=== PATIENT | male | born 1950 | race Caucasian/White ===

== ENCOUNTER 2017-06-14 22:43 | Emergency (ER) | payer BC ==
[~2017-06-14] VITALS: Ht 188 cm; Wt 95.3 kg
[~2017-06-14 22:43] MED LIST: CLOP75TA PO; DILT300C PO; GLYB5TAB6 PO; LOSA1TAB23 PO; METF-380 PO; PRD20T PO
[2017-06-14] MEDS ORDERED: CLINDAMYCIN INJECTION 900 MG in NS (IVPB) 50 ML IV ONE (23:15)
[2017-06-14 23:23] LABS: BASOPHILS % (AUTO) 0 % (0-10); EOSINOPHILS # (AUTO) 0.1 10^3/uL (0.0-0.3); EOSINOPHILS % (AUTO) 1 % (0-10); LYMPHOCYTES # (AUTO) 1.2 X 10^3 (1.0-4.0); LYMPHOCYTES % (AUTO) 9 % (12-44); MEAN CORPUSCULAR HEMOGLOBIN 31 PG (25-34); MEAN CORPUSCULAR HGB CONC 35 G/DL (32-36); MEAN CORPUSCULAR VOLUME 88 FL (80-99); MEAN PLATELET VOLUME 9.5 FL (7.4-10.4); MONOCYTES # (AUTO) 1.4 X 10^3 (0.0-1.0); MONOCYTES % (AUTO) 10 % (0-12); NEUTROPHILS # (AUTO) 11.8 X 10^3 (1.8-7.8); NEUTROPHILS % (AUTO) 81 % (42-75); PLATELET COUNT 214 10^3/uL (130-400); RED BLOOD COUNT 4.81 10^6/uL (4.35-5.85); RED CELL DISTRIBUTION WIDTH 13.4 % (10.0-14.5); WHITE BLOOD COUNT 14.5 10^3/uL (4.3-11.0)
[2017-06-14 23:42] LABS: BAND NEUTROPHILS 0 %; BASOPHILS % (MANUAL) 0 %; EOSINOPHILS % (MANUAL) 2 %; ERYTHROCYTE SEDIMENTATION RATE 4 MM/HR (0-30); LYMPHOCYTES % (MANUAL) 3 %; NEUTROPHILS % (MANUAL) 83 %; REACTIVE LYMPHOCYTES 4 %
[2017-06-14 23:44] LABS: CREATININE SERUM 1.31 MG/DL (0.60-1.30); POTASSIUM 3.9 MMOL/L (3.6-5.0); hs C REACTIVE PROTEIN 1.04 MG/DL (0.00-0.50)
[2017-06-15] MEDS ORDERED: CLIN300C11 PO (00:07)
--- NOTE | 2017-06-15 00:08 | ED Lower Extremity ---
General Chief Complaint: Lower Extremity Stated Complaint: LT GREAT TOE INFECTION Nursing Triage Note: PT AMBULATED TO ROOM. PT STATES APPROX 2200 TONIGHT HE WAS OUT WITH HIS ANIMALS AND WHEN HE WENT INSIDE HIS HOUSE HE NOTICED A WOUND ON HIS LEFT GREATER TOE. PT STATES HE IS A DIABETIC SO HE JUST WANTED TO GET IT CHECKED OUT SOONER THAN LATER. PT HAS NO PAIN COMPLAINTS AT THIS TIME. Nursing Sepsis Screen: No Definite Risk Source: patient, spouse Exam Limitations: no limitations History of Present Illness Time seen by provider: 23:00 Initial Comments PT IS DIABETIC WITH PERIPHERAL NEUROPATHY. HAS HAD FOOT ULCER TO LEFT GREAT TOE OFF AND ON X 4 YEARS AREA BEGAN TO BECOME BLISTERED AND SOFT AGAIN 1 1/2 WEEKS AGO, AND WAS SEEN BY DR. DAWSON AND HAD AREA DEBRIDED. HAS FOLLOW UP APPOINTMENT NEXT WEEK. TONIGHT AT 2200 HE NOTICED A STREAK GOING UP HIS FOOT, WAS NOT AWARE HE HAD ANY PROBLEMS WITH IT UNTIL TONIGHT NO DRAINAGE FROM AREA NO FEVER PT DOES NOT HAVE ANY SENSATION TO FEET, EXCEPT MILD VIBRATORY SENSATION PCP: DR. HORAN TEACHING MUSIC LESSONS: DR. DAWSON Allergies and Home Medications Allergies Coded Allergies: Penicillins (Unverified Allergy, 05/08/10) Home Medications Clindamycin HCl 300 Mg Capsule, 300 MG PO QID, #40 Prescribed by: SEVEN ROACH on 06/15/17 0007 Clopidogrel Bisulfate 75 Mg Tablet, 1 EACH PO DAILY, (Reported) Diltiazem Hcl 300 Mg Cap.sr.24h, 1 EACH PO DAILY, (Reported) Glyburide 5 Mg Tablet, 1 EACH PO DAILY, (Reported) Losartan/Hydrochlorothiazide 1 Each Tablet, 1 EACH PO DAILY, (Reported) Metformin Hcl 1,000 Mg Tablet, 1 EACH PO BID WITH MEALS, (Reported) Prednisone 20 Mg Tab, 20 MG PO BID, #6 Prescribed by: KONSTANTIN LINDQUIST on 05/10/16 4847 Constitutional: no symptoms reported Respiratory: no symptoms reported Cardiovascular: no symptoms reported Musculoskeletal: see HPI Skin: see HPI Psychiatric/Neurological: See HPI, Pre-Existing Deficit Past Gjtbhiz-Pudauv-Nzhiex Hx Patient Social History Alcohol Use: Denies Use Recreational Drug Use: No Smoking Status: Never a Smoker 2nd Hand Smoke Exposure: No Recent Foreign Travel: No Contact w/Someone Who Travel: No Recent Infectious Disease Expo: No Recent Hopitalizations: No Seasonal Allergies Seasonal Allergies: No Surgeries HX Surgeries: No Respiratory Hx Respiratory Disorders: No Cardiovascular Hx Cardiac Disorders: Yes Cardiac Disorders: Hypertension Neurological Hx Neurological Disorders: Yes Neurological Disorders: Neuropathy Reproductive System Hx Reproductive Disorders: No Sexually Transmitted Disease: No Genitourinary Hx Genitourinary Disorders: No Gastrointestinal Hx Gastrointestinal Disorders: No Musculoskeletal Hx Musculoskeletal Disorders: No Endocrine Hx Endocrine Disorders: Yes Endocrine Disorders: Diabetes, Non-Insulin dep HEENT HX ENT Disorders: No Cancer Hx Cancer: No Psychosocial Hx Psychiatric Problems: No Integumentary HX Skin/Integumentary Disorder: Yes (DIABETIC FOOT ULCER-LEFT GREAT TOE) Blood Transfusions Hx Blood Disorders: No Adverse Reaction to a Blood Tr: No Physical Exam Vital Signs Vital Sign - Last 12Hours 06/14/17 22:45 Temp 97.2 Pulse 82 Resp 20 B/P (MAP) 151/76 Pulse Ox 96 O2 Delivery Room Air Capillary Refill : Less Than 3 Seconds General Appearance: WD/WN, no apparent distress Cardiovascular: normal peripheral pulses, regular rate, rhythm, no murmur Respiratory: normal breath sounds Feet: left foot other (LEFT GREAT TOE WITH AT LEAST A STAGE 2 ULCER WITHOUT DRAINAGE. ENTIRE LEFT GREAT TOE IS RED AND SWOLLEN, WITH A STREAK EXTENDING UP TO MEDIAL MALLEOLUS . PT DOES NOT HAVE SENSATION TO FOOT. CAPILLARY REFILL IS NORMAL AND ROM IS NORMAL. ) Neurologic/Psychiatric: house admin II-XII nml as tested, alert, normal mood/affect, oriented x 3 Skin: normal color, warm/dry, other ( ABOVE) Progress/Results/Core Measures Results/Orders Lab Results Laboratory Tests Test 06/14/17 23:00 Range/Units White Blood Count 14.5 H 4.3-11.0 10^3/uL Red Blood Count 4.81 4.35-5.85 10^6/uL Hemoglobin 14.8 13.3-17.7 G/DL Hematocrit 42 40-54 % Mean Corpuscular Volume 88 80-99 FL Mean Corpuscular Hemoglobin 31 25-34 PG Mean Corpuscular Hemoglobin Concent 35 32-36 G/DL Red Cell Distribution Width 13.4 10.0-14.5 % Platelet Count 214 130-400 10^3/uL Mean Platelet Volume 9.5 7.4-10.4 FL Neutrophils (%) (Auto) 81 H 42-75 % Lymphocytes (%) (Auto) 9 L 12-44 % Monocytes (%) (Auto) 10 0-12 % Eosinophils (%) (Auto) 1 0-10 % Basophils (%) (Auto) 0 0-10 % Neutrophils # (Auto) 11.8 H 1.8-7.8 X 10^3 Lymphocytes # (Auto) 1.2 1.0-4.0 X 10^3 Monocytes # (Auto) 1.4 H 0.0-1.0 X 10^3 Eosinophils # (Auto) 0.1 0.0-0.3 10^3/uL Basophils # (Auto) 0.0 0.0-0.1 10^3/uL Neutrophils % (Manual) 83 % Lymphocytes % (Manual) 3 % Monocytes % (Manual) 8 % Eosinophils % (Manual) 2 % Basophils % (Manual) 0 % Band Neutrophils 0 % Reactive Lymphocytes 4 % Blood Morphology Comment NORMAL Erythrocyte Sedimentation Rate 4 0-30 MM/HR Sodium Level 135 135-145 MMOL/L Potassium Level 3.9 3.6-5.0 MMOL/L Chloride Level 101 98-107 MMOL/L Carbon Dioxide Level 24 21-32 MMOL/L Anion Gap 10 5-14 MMOL/L Blood Urea Nitrogen 26 H 7-18 MG/DL Creatinine 1.31 H 0.60-1.30 MG/DL Estimat Glomerular Filtration Rate 54 BUN/Creatinine Ratio 20 Glucose Level 334 H 70-105 MG/DL Lactic Acid Level 1.19 0.50-2.00 MMOL/L Calcium Level 9.0 8.5-10.1 MG/DL C-Reactive Protein High Sensitivity 1.04 H 0.00-0.50 MG/DL My Orders Orders - SEVEN ROACH DO Saline Lock/Iv-Start (06/14/17 23:05) Basic Metabolic Panel (06/14/17 23:05) Cbc With Automated Diff (06/14/17 23:05) Hs C Reactive Protein (06/14/17 23:05) Erythrocyte Sedimentation Rate (06/14/17 23:05) Lactic Acid Analyzer (06/14/17 23:05) Blood Culture (06/14/17 23:05) Foot, Left, 3 Views (06/14/17 23:05) Clindamycin Injection (Cleocin Injection (06/14/17 23:15) Manual Differential (06/14/17 23:00) Medications Given in ED Current Medications Medications Dose Ordered Sig/Mirela Route Start Time Stop Time Status Last Admin Dose Admin Clindamycin Phosphate 900 mg/ Sodium Chloride 56 ml @ 100 mls/hr ONCE ONCE IV 06/14/17 23:15 06/14/17 23:48 DC 06/14/17 23:19 100 MLS/HR Vital Signs/I&O Vital Sign - Last 12Hours 06/14/17 06/15/17 22:45 00:13 Temp 97.2 97.2 Pulse 82 71 Resp 20 16 B/P (MAP) 151/76 Pulse Ox 96 95 O2 Delivery Room Air Room Air Intake and Output 06/15/17 00:00 Intake Total 56 ml Balance 56 ml Blood Pressure Mean: 101 Progress Note : Progress Note STREAK IS BEGINNING TO FADE AND RECEDE AT TIME OF DISMISSAL OFFERED ADMIT AND PT DECLINES. PT ADMITS THAT CLINDAMYCIN HAS WORKED VERY WELL FOR THIS PROBLEM IN THE PAST Departure Impression Impression: Primary Impression: Diabetic ulcer of left great toe Additional Impression: Cellulitis of great toe of left foot Disposition: HOME, SELF-CARE Condition: Stable Departure-Patient Inst. Referrals: RADHA HORAN MD (PCP/Family) Primary Care Physician MANSI DAWSON DPM Patient Instructions: Cellulitis (Skin Infection), Adult (DC), Diabetic Foot Ulcer (DC) Add. Discharge Instructions: KEEP AREA CLEAN AND DRY CHECK YOUR BLOOD SUGAR 3 TIMES A DAY AND KEEP DIARY FOLLOW UP WITH DR. HORAN AND DR. DAWSON IN 1-2 DAYS FOR FURTHER CARE RETURN TO ER IF WORSE All discharge instructions reviewed with patient and/or family. Voiced understanding. Scripts Clindamycin HCl (Clindamycin HCl) 300 Mg Capsule 300 MG PO QID for FOR INFECTION, #40 CAP Prov: SEVEN ROACH DO 06/15/17 SEVEN ROACH DO Jun 15, 2017 12:08 am
[2017-06-15 00:13] VITALS: BP 135/74
--- NOTE | 2017-06-15 06:55 | Diagnostic Imaging Report ---
INDICATION: Left foot pain. Redness and swelling of the great toe. COMPARISON: 05/19/2010. TECHNIQUE: 3 nonweightbearing views of the left foot. FINDINGS: No cortical indistinctness or osseous erosions to confirm osteomyelitis. No periarticular erosions or soft tissue tophi to suggest gout. Multifocal moderate degenerative changes in the midfoot, particularly at the tarsometatarsal articulation. The cuboid has volume loss which is likely degenerative in nature and similar to prior examination. There appears to be midfoot collapse although this cannot be confirmed on nonweightbearing imaging. No fracture. Small plantar and dorsal calcaneal spurs. IMPRESSION: No radiographic evidence of osteomyelitis or gout. Dictated by: Dictated on workstation # [id number]
== END 2017-06-15 00:13 | disposition home or self-care (01) ==
LOC: EDUNIT# 22:43 → ER 22:44
DX: E11.621 Type 2 diabetes mellitus with foot ulcer (principal); L97.529 Non-pressure chronic ulcer of other part of left foot with unspecified severity; L03.032 Cellulitis of left toe; E11.40 Type 2 diabetes mellitus with diabetic neuropathy, unspecified; I10 Essential (primary) hypertension; Z79.84 Long term (current) use of oral hypoglycemic drugs; Z79.02 Long term (current) use of antithrombotics/antiplatelets
CPT/HCPCS: 36415; 73630; 80048; 83605; 85007; 85027; 85652; 86141; 87040; 96365

== ENCOUNTER 2018-04-30 15:47 | Emergency (ER) | payer MEDICARE ==
[~2018-04-30] VITALS: Ht 188 cm; Wt 97.1 kg
[~2018-04-30 15:47] MED LIST changes: +CLIN300C11 PO
--- NOTE | 2018-04-30 16:53 | ED GU-Male ---
General Chief Complaint: Catheter/Drain/Tube Problems Stated Complaint: UNABLE TO URINATE/TUBE/CATHETER ISSUES Nursing Triage Note: PT AMBULATES TO ED 7 W CO OF CATHERTER NOT DRAINING, PT STATES HAD CATHETER PUT IN ON WEDNESDAY, STATES HAD BLOOD CLOT WEDNESDAY, STATES HAS QUIT DRAINING AGAIN TODAY. PLANS TO SEE DR JARAMILLO 1ST OF NEXT WEEK. STATES NEEDS CATH IRRIGATED. Source: patient, family Exam Limitations: no limitations Allergies and Home Medications Allergies Coded Allergies: Penicillins (Unverified Allergy, 05/08/10) Home Medications Clindamycin HCl 300 Mg Capsule, 300 MG PO QID Prescribed by: SEVEN ROACH on 06/15/17 0007 Clopidogrel Bisulfate 75 Mg Tablet, 1 EACH PO DAILY, (Reported) Diltiazem Hcl 300 Mg Cap.sr.24h, 1 EACH PO DAILY, (Reported) Glyburide 5 Mg Tablet, 1 EACH PO DAILY, (Reported) Losartan/Hydrochlorothiazide 1 Each Tablet, 1 EACH PO DAILY, (Reported) Metformin Hcl 1,000 Mg Tablet, 1 EACH PO BID WITH MEALS, (Reported) Prednisone 20 Mg Tab, 20 MG PO BID Prescribed by: KONSTANTIN LINDQUIST on 05/10/16 1392 Past Vbwcfkh-Rodjcp-Lvmiuo Hx Patient Social History Alcohol Use: Denies Use Recreational Drug Use: No Smoking Status: Never a Smoker 2nd Hand Smoke Exposure: No Recent Foreign Travel: No Contact w/Someone Who Travel: No Recent Infectious Disease Expo: No Recent Hopitalizations: No Physical Abuse: No Sexual Abuse: No Seasonal Allergies Seasonal Allergies: No Past Medical History Surgeries: No Respiratory: No Cardiac: Yes Hypertension Neurological: Yes Neuropathy Reproductive Disorders: No Sexually Transmitted Disease: No Genitourinary: No Gastrointestinal: No Musculoskeletal: No Endocrine: Yes Diabetes, Non-Insulin dep HEENT: No Cancer: No Psychosocial: No Nursing Suicide Risk Score: 0 Integumentary: Yes (DIABETIC FOOT ULCER-LEFT GREAT TOE) Blood Disorders: No Adverse Reaction/Blood Tranf: No Physical Exam Vital Signs Vital Signs - First Documented 04/30/18 16:15 Temp 97.2 Pulse 70 Resp 18 B/P (MAP) 155/86 (109) Pulse Ox 100 Capillary Refill : Less Than 3 Seconds Progress/Results/Core Measures Suspected Sepsis Recent Fever Within 48 Hours: No Infection Criteria Present: None New/Unexplained Altered Menta: No Sepsis Screen: No Definite Risk SIRS Temperature:97.2 Pulse: 70 Respiratory Rate: 18 Blood Pressure 155 /86 Mean: 109 Results/Orders Vital Signs/I&O 04/30/18 16:15 Temp 97.2 Pulse 70 Resp 18 B/P (MAP) 155/86 (109) Pulse Ox 100 Capillary Refill : Less Than 3 Seconds Blood Pressure Mean: 109 Departure Impression Primary Impression: Chen catheter problem Qualified Codes: T83.9XXA - Unspecified complication of genitourinary prosthetic device, implant and graft, initial encounter Disposition: HOME, SELF-CARE Condition: Improved Departure-Patient Inst. Decision time for Depature: 16:51 Referrals: RADHA HORAN MD (PCP/Family) Primary Care Physician Patient Instructions: How to Care for Your Chen Catheter, Male Add. Discharge Instructions: Empty your catheter bag as often as possible. Keep your catheter bag lower that your hips to prevent backflush. Continue with your medications and follow-up appointments as previously directed. Return to care if you have any other problems or concerns. All discharge instructions reviewed with patient and/or family. Voiced understanding. KONSTANTIN COFFEY MD Apr 30, 2018 16:52
[2018-04-30 16:55] VITALS: BP 155/86
== END 2018-04-30 16:55 | disposition home or self-care (01) ==
LOC: EDUNIT# 15:47 → ER 15:48
DX: T83.9XXA Unspecified complication of genitourinary prosthetic device, implant and graft, initial encounter (principal); R30.0 Dysuria; I10 Essential (primary) hypertension; E11.40 Type 2 diabetes mellitus with diabetic neuropathy, unspecified; E11.621 Type 2 diabetes mellitus with foot ulcer; L97.529 Non-pressure chronic ulcer of other part of left foot with unspecified severity; Z88.0 Allergy status to penicillin; Z79.84 Long term (current) use of oral hypoglycemic drugs; Z79.52 Long term (current) use of systemic steroids; Z79.02 Long term (current) use of antithrombotics/antiplatelets; Z96.0 Presence of urogenital implants
CPT/HCPCS: 99281

== ENCOUNTER 2018-10-20 08:07 | Emergency (ER) | payer MEDICARE ==
[~2018-10-20] VITALS: Ht 185.4 cm; Wt 98.4 kg
--- OUTSIDE RECORDS SUMMARY | 2018-10-20 08:15 | XMS REPORT | Clinical Summary ---
Author Author [facility] Organization [facility] Address Unknown Phone Unavailable Care Team Providers Care Air [employer] Pilot Name Role Phone Malik Lozano MD Unavailable Hipolito Deras MD Unavailable Hipolito Deras MD PCP Source Comments Some departments are not documenting in the electronic medical record. If you do not see the information that you expected, contact Release of Information in the Health Information Management department at [phone] for further assistance in locating additional records.[facility] Allergies Comments Active Allergy Reactions Severity Noted Date MSG's Unclassified Drug HIVES 05/05/2012 Penicillins HIVES 05/05/2012 Medications End Date Status Medication Sig Dispensed Refills Start Date Active glyBURIDE (DIABETA) 5 mg Take 5 mg by 0 tablet mouth daily with breakfast. Active diltiazem CD (CARDIZEM Take 300 mg 0 CD) 300 mg capsule by mouth daily. Active losartan (COZAAR) 25 mg Take 25 mg by 0 tablet mouth daily. Active clopidogrel (PLAVIX) 75 Take 75 mg by 0 mg mouth daily. Active cetirizine (ZYRTEC) 10 mg Take 10 mg by 0 tablet mouth daily. Active tamsulosin (FLOMAX) 0.4 Take 0.4 mg 0 mg capsule by mouth daily. Do not crush, chew or open capsules. Take 30 minutes following the same meal each day. Active metFORMIN (GLUCOPHAGE) Take one 180 tablet 3 1,000 mg tablet by 8 tabletIndications: mouth twice Controlled type 2 daily with diabetes mellitus without meals. 1/2 in complication, without am x 2w, then long-term current use of 1/2 bid x 2w, insulin (HCC) the 1 am 1/2 pm x 2w, then 1 bid. Take with food. 10/05/2018 Discontinued metFORMIN (GLUCOPHAGE) Take 1 Tab by 180 Tab 3 1,000 mg mouth twice 7 tabletIndications: daily with Controlled type 2 meals. 1/2 in diabetes mellitus without am x 2w, then complication, without 1/2 bid x 2w, long-term current use of the 1 am 1/2 insulin (HCC) pm x 2w, then 1 bid. Take with food. Active Problems Problem Noted Date Dysarthria 05/05/2012 Dysphonia 05/05/2012 Aphasia 05/05/2012 Encounters Care Team Description Date Type Specialty Darrell Reed MD Controlled type 2 diabetes mellitus without complication, without long-term current use of insulin (HCC) 10/05/2018 Office Visit Endocrinology, Metabolism & Genetics from Last 3 Months Family History Medical History Relation Name Comments Heart Attack Father Stroke Father Alzheimer's Mother Other Mother NPH Relation Name Status Comments Father Mother Social History Date Tobacco Use Types Packs/Day Years Used Former Smoker Cigars Smokeless Tobacco: Former Chew User Tobacco Cessation: Counseling Given: No Alcohol Use Drinks/Week oz/Week Comments Yes 2-3 Glasses 1.2 - 1.8 of wine Sex Assigned at Date Recorded Not on file Industry Job Start Date Occupation Not on file Not on file Not on file Travel End Travel History Travel Start No recent travel history available. Last Filed Vital Signs Time Taken Vital Sign Reading 10/05/2018 10:30 AM BLANKET CUTTING MACHINE OPERATOR Blood Pressure 116/65 10/05/2018 10:30 AM BLANKET CUTTING MACHINE OPERATOR Pulse 62 06/03/2012 1:05 AM CDT Temperature 36.3 C (97.4 F) - Respiratory Rate - - Oxygen Saturation - - Inhaled Oxygen - Concentration 10/05/2018 10:30 AM BLANKET CUTTING MACHINE OPERATOR Weight 100 kg (220 lb 6.4 oz) 10/05/2018 10:30 AM BLANKET CUTTING MACHINE OPERATOR Height 186.1 cm (6' 1.27") 10/05/2018 10:30 AM BLANKET CUTTING MACHINE OPERATOR Body Mass Index 28.87 Plan of Treatment Health Maintenance Due Date Last Done Comments HEPATITIS C SCREENING 1950 PHYSICAL (COMPREHENSIVE) 02/18/1956 EXAM DTAP/TDAP VACCINES (1 - 1967 Tdap) COLORECTAL CANCER 1999 SCREENING SHINGLES RECOMBINANT 1999 VACCINE (1 of 2) ABDOMINAL AORTIC ANEURYSM 2014 SCREENING PNEUMONIA (PCV13/PPSV23) 2014 VACCINES (1 of 2 - PCV13) DILATED EYE EXAM 10/08/2017 10/08/2016 INFLUENZA VACCINE 06/08/2018 08/08/2017 FOOT EXAM 10/06/2018 10/06/2017 HBA1C 04/04/2019 10/05/2018, 10/06/2017, 02/11/2017 Procedures Comments Procedure Name Priority Date/Time Associated Diagnosis POC HEMOGLOBIN A1C Routine 10/05/2018 Controlled type 2 10:30 AM BLANKET CUTTING MACHINE OPERATOR diabetes mellitus without complication, without long-term current use of insulin (HCC) POC GLUCOSE QUANTITATIVE Routine 10/05/2018 Controlled type 2 BLOOD 10:30 AM BLANKET CUTTING MACHINE OPERATOR diabetes mellitus without complication, without long-term current use of insulin (HCC) from Last 3 Months Results * POC GLUCOSE QUANTITATIVE BLOOD (10/05/2018 10:30 AM BLANKET CUTTING MACHINE OPERATOR) Glucose, POC 156 [facility] Specimen Blood, capillary Performing Organization Address City/State/Zipcode Phone Number IN CLINIC * POC HEMOGLOBIN A1C (10/05/2018 10:30 AM BLANKET CUTTING MACHINE OPERATOR) Poc Hemoglobin A1C 7.0 % IN CLINIC Specimen Blood, capillary - Blood Performing Organization Address City/State/Zipcode Phone Number IN CLINIC from Last 3 Months Insurance Payer Benefit Subscriber ID Type Phone Address Plan / Group MEDICARE MEDICARE xxxxxxxxxx Medicare PART A AND B BCBS [place] BCBS xxxxxxxxxxxx Medicare SUPPLEMENT Advance Directives Patient has advance care planning documents on file. For more information, please contact: [facility] [address] [place] [address]
--- OUTSIDE RECORDS SUMMARY | 2018-10-20 08:15 | XMS REPORT | Encounter Summary ---
Author Author [facility] Organization [facility] Address Unknown Phone Unavailable Care Team Providers Care Chief Passenger Ship Steward/Stewardess Name Role Phone Malik Lozano MD Unavailable Hipolito Deras MD Unavailable Hipolito Deras MD PCP Reason for Visit * Reason Comments Diabetes Encounter Details Care Team Description Date Type Department Zeina Reed MD [address] [facility] [address] [place] [address] [phone] Controlled type 2 diabetes mellitus without complication, without long-term current use of insulin ([facility]) 10/05/2018 Office Visit [facility] - Internal [facility] [address] [place] [address] Social History Date Tobacco Use Types Packs/Day Years Used Former Smoker Cigars Smokeless Tobacco: Former Chew User Alcohol Use Drinks/Week oz/Week Comments Yes 2-3 Glasses 1.2 - 1.8 of wine Sex Assigned at Date Recorded Not on file Industry Job Start Date Occupation Not on file Not on file Not on file Travel End Travel History Travel Start No recent travel history available. as of this encounter Last Filed Vital Signs Time Taken Vital Sign Reading 10/05/2018 10:30 AM MEDICAL RECORD CODER Blood Pressure 116/65 10/05/2018 10:30 AM MEDICAL RECORD CODER Pulse 62 - Temperature - - Respiratory Rate - - Oxygen Saturation - - Inhaled Oxygen - Concentration 10/05/2018 10:30 AM MEDICAL RECORD CODER Weight 100 kg (220 lb 6.4 oz) 10/05/2018 10:30 AM MEDICAL RECORD CODER Height 186.1 cm (6' 1.27") 10/05/2018 10:30 AM MEDICAL RECORD CODER Body Mass Index 28.87 in this encounter Patient Instructions * Patient Instructions* Zeina Reed MD - 10/05/2018 11:00 AM MEDICAL RECORD CODER 1. I'd suggest checking out the [employer] website to see if you can qualify for cheap medication. 2. If it's easier to remember, you can take metformin 1000 mg with both breakfast and lunch. 3. Getting metformin on a more regular basis may suffice in lowering the hemoglobin A1c. However, if you can get your hands on affordable Trulicity, it would help. CAL RECORD CODER in this encounter Progress Notes * Zeina Reed MD - 10/05/2018 11:00 AM MEDICAL RECORD CODER Date of Service: 10/05/2018 Subjective: Misael Ch is a 68 y.o. male. History of Present Illness Dictation on: 10/06/2018 8:00 AM by: ZEINA REED [ [email or web address]] Review of Systems Endocrine: Positive for cold intolerance. Genitourinary: Positive for difficulty urinating. All other systems reviewed and are negative. Objective: cetirizine (ZYRTEC) 10 mg tablet Take 10 mg by mouth daily. clopidogrel (PLAVIX) 75 mg Take 75 mg by mouth daily. diltiazem CD (CARDIZEM CD) 300 mg capsule Take 300 mg by mouth daily. glyBURIDE (DIABETA) 5 mg tablet Take 5 mg by mouth daily with breakfast. losartan (COZAAR) 25 mg tablet Take 25 mg by mouth daily. metFORMIN (GLUCOPHAGE) 1,000 mg tablet Take one tablet by mouth twice daily with meals. 1/2 in am x 2w, then 1/2 bid x 2w, the 1 am 1/2 pm x 2w, then 1 bid. Take with food. tamsulosin (FLOMAX) 0.4 mg capsule Take 0.4 mg by mouth daily. Do not crush , chew or open capsules. Take 30 minutes following the same meal each day. Vitals: 10/05/18 1030 BP: 116/65 Pulse: 62 Weight: 100 kg (220 lb 6.4 oz) Height: 186.1 cm (73.27") Body mass index is 28.87 kg/m. Physical Exam Constitutional: He is oriented to person, place, and time. He appears well- developed and well-nourished. HENT: Head: Normocephalic. Eyes: Conjunctivae are normal. Neck: Normal range of motion. Cardiovascular: Normal rate, regular rhythm, normal heart sounds and intact distal pulses. Pulmonary/Chest: Effort normal and breath sounds normal. Abdominal: Soft. Bowel sounds are normal. Musculoskeletal: Normal range of motion. Neurological: He is alert and oriented to person, place, and time. Feet in good condition. Sensation normal in feet. Skin: Skin is warm and dry. Psychiatric: He has a normal mood and affect. His behavior is normal. Nursing note and vitals reviewed. Assessment and Plan: Dictation on: 10/06/2018 8:01 AM by: ZEINA REED [[email or web address]] CAL RECORD CODER in this encounter Plan of Treatment Not on fileas of this encounter Procedures Comments Procedure Name Priority Date/Time Associated Diagnosis POC GLUCOSE QUANTITATIVE Routine 10/05/2018 Controlled type 2 BLOOD 10:30 AM MEDICAL RECORD CODER diabetes mellitus without complication, without long-term current use of insulin (HCC) POC HEMOGLOBIN A1C Routine 10/05/2018 Controlled type 2 10:30 AM MEDICAL RECORD CODER diabetes mellitus without complication, without long-term current use of insulin (HCC) in this encounter Results * POC HEMOGLOBIN A1C (10/05/2018 10:30 AM MEDICAL RECORD CODER) Poc Hemoglobin A1C 7.0 % IN CLINIC Specimen Blood, capillary - Blood Performing Organization Address [facility] * POC GLUCOSE QUANTITATIVE BLOOD (10/05/2018 10:30 AM MEDICAL RECORD CODER) Glucose, POC 156 [facility] Specimen Blood, capillary Performing Organization Address [facility] Phone Number [facility] in this encounter Visit Diagnoses Diagnosis Controlled type 2 diabetes mellitus without complication, without long-term current use of insulin (HCC) in this encounter
--- OUTSIDE RECORDS SUMMARY | 2018-10-20 08:16 | XMS REPORT | Continuity of Care Document ---
Author Author [facility] Organization [facility] Address Unknown Phone Unavailable Allergies Active Description Code Type Severity Reaction Onset Reported/Identified Relationship to Patient Clinical Status Yes Penicillins [id number] Drug Allergy Unknown N/A 05/08/2010 Medications There is no data. 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, ACCIDENTAL ( 05/14/2016 ERLINDA LEYVA, KONSTANTIN T Ot L50.0 ALLERGIC URTICARIA 05/14/2016 ERLINDA LEYVA, KONSTANTIN T Ot 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, ACCIDENTAL ( 06/14/2017 Ot 723.1 CERVICALGIA 06/14/2017 Ot 784.49 OTHER VOICE AND RESONANCE DISORDERS 06/15/2017 SEVEN ROACH DO Ot E11.40 TYPE 2 DIABETES MELLITUS WITH DIABETIC N 06/15/2017 SEVEN ROACH DO Ot E11.621 TYPE 2 DIABETES MELLITUS WITH FOOT ULCER 06/15/2017 SEVEN ROACH DO Ot I10 ESSENTIAL (PRIMARY) HYPERTENSION 06/15/2017 SEVEN ROACH DO Ot L03.032 CELLULITIS OF LEFT TOE 06/15/2017 SEVEN ROACH DO Ot L08.89 OTH LOCAL INFECTIONS OF THE SKIN AND SUB 06/15/2017 SEVEN ROACH DO Ot L97.529 NON-PRESSURE CHRONIC ULCER OTH PRT LEFT 06/15/2017 SEVEN ROACH DO Ot 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 INSTRUCTOR (CURRENT) USE OF ANTITHROMBOTI 06/15/2017 SEVEN ROACH DO Ot Z79.84 MCC (CURRENT) USE OF ORAL HYPOGLYC 04/30/2018 KONSTANTIN COFFEY MD, Ot E11.40 TYPE 2 DIABETES MELLITUS WITH DIABETIC N 04/30/2018 KONSTANTIN COFFEY MD, Ot E11.621 TYPE 2 DIABETES MELLITUS WITH FOOT ULCER 04/30/2018 KONSTANTIN COFFEY MD Ot I10 ESSENTIAL (PRIMARY) HYPERTENSION 04/30/2018 KONSTANTIN COFFEY MD, Ot L97.529 NON-PRESSURE CHRONIC ULCER OTH PRT LEFT 04/30/2018 KONSTANTIN COFFEY MD Ot R30.0 DYSURIA 04/30/2018 KONSTANTIN COFFEY MD Ot 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 04/30/2018 KONSTANTIN COFFEY MD Ot 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 INSTRUCTOR (CURRENT) USE OF ANTITHROMBOTI 04/30/2018 KONSTANTIN COFFEY MD Ot Z79.52 FACULTY INSTRUCTOR (CURRENT) USE OF SYSTEMIC STER 04/30/2018 KONSTANTIN COFFEY MD Ot Z79.84 FACULTY INSTRUCTOR (CURRENT) USE OF ORAL HYPOGLYC 04/30/2018 KONSTANTIN COFFEY MD, Ot Z88.0 ALLERGY STATUS TO PENICILLIN 04/30/2018 KONSTANTIN COFFEY MD Ot Z96.0 PRESENCE OF UROGENITAL IMPLANTS 05/02/2018 KONSTANTIN COFFEY MD, Ot E11.40 TYPE 2 DIABETES MELLITUS WITH DIABETIC N 05/02/2018 KONSTANTIN COFFEY MD, Ot E11.621 TYPE 2 DIABETES MELLITUS WITH FOOT ULCER 05/02/2018 KONSTANTIN COFFEY MD Ot I10 ESSENTIAL (PRIMARY) HYPERTENSION 05/02/2018 KONSTANTIN COFFEY MD Ot L97.529 NON-PRESSURE CHRONIC ULCER OTH PRT LEFT 05/02/2018 KONSTANTIN COFFEY MD Ot R30.0 DYSURIA 05/02/2018 KONSTANTIN COFFEY MD Ot 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 Results Test Result Range Complete blood count (CBC) with automated white blood cell (WBC) differential - 06/14/17 23:00 Blood leukocytes automated count (number/volume) 14.5 10*3/uL 4.3-11.0 Blood erythrocytes automated count (number/volume) 4.81 10*6/uL 4.35-5.85 Venous blood hemoglobin measurement (mass/volume) 14.8 g/dL 13.3-17.7 Blood hematocrit (volume fraction) 42 % 40-54 Automated erythrocyte mean corpuscular volume 88 [foz_us] 80-99 Automated erythrocyte mean corpuscular hemoglobin (mass per erythrocyte) 31 pg 25-34 Automated erythrocyte mean corpuscular hemoglobin concentration measurement ( mass/volume) 35 g/dL 32-36 Automated erythrocyte distribution width ratio 13.4 % 10.0-14.5 Automated blood platelet count (count/volume) 214 10*3/uL 130-400 Automated blood platelet mean volume measurement 9.5 [foz_us] 7.4-10.4 Automated blood neutrophils/100 leukocytes 81 % 42-75 Automated blood lymphocytes/100 leukocytes 9 % 12-44 Blood monocytes/100 leukocytes 10 % 0-12 Automated blood eosinophils/100 leukocytes 1 % 0-10 Automated blood basophils/100 leukocytes 0 % 0-10 Blood neutrophils automated count (number/volume) 11.8 10*3 1.8-7.8 Blood lymphocytes automated count (number/volume) 1.2 10*3 1.0-4.0 Blood monocytes automated count (number/volume) 1.4 10*3 0.0-1.0 Automated eosinophil count 0.1 10*3/uL 0.0-0.3 Automated blood basophil count (count/volume) 0.0 10*3/uL 0.0-0.1 Blood lactic acid measurement (moles/volume) - 06/14/17 23:00 Blood lactic acid measurement (moles/volume) 1.19 mmol/L 0.50-2.00 Blood manual differential performed detection - 06/14/17 23:00 Blood monocytes/100 leukocytes 8 % NRG Manual blood segmented neutrophils/100 leukocytes 83 % NRG Blood band neutrophils/100 leukocytes 0 % NRG Manual blood lymphocytes/100 leukocytes 3 % NRG Manual eosinophils/100 leukocytes in nose 2 % NRG Manual blood basophils/100 leukocytes 0 % NRG Blood lymphocytes variant/100 leukocytes 4 % NRG Blood erythrocyte morphology finding identification NORMAL NRG Erythrocyte sedimentation rate by westergren method - 06/14/17 23:00 Erythrocyte sedimentation rate by westergren method 4 mm 0-30 Whole blood basic metabolic panel - 06/14/17 23:00 Serum or plasma sodium measurement (moles/volume) 135 mmol/L 135-145 Serum or plasma potassium measurement (moles/volume) 3.9 mmol/L 3.6-5.0 Serum or plasma chloride measurement (moles/volume) 101 mmol/L 98-107 Carbon dioxide 24 mmol/L 21-32 Serum or plasma anion gap determination (moles/volume) 10 mmol/L 5-14 Serum or plasma urea nitrogen measurement (mass/volume) 26 mg/dL 7-18 Serum or plasma creatinine measurement (mass/volume) 1.31 mg/dL 0.60-1.30 Serum or plasma urea nitrogen/creatinine mass ratio 20 NRG Serum or plasma creatinine measurement with calculation of estimated glomerular filtration rate 54 NRG Serum or plasma glucose measurement (mass/volume) 334 mg/dL 70-105 Serum or plasma calcium measurement (mass/volume) 9.0 mg/dL 8.5-10.1 Serum or plasma C reactive protein measurement (mass/volume) - 06/14/17 23:00 Serum or plasma C reactive protein measurement (mass/volume) 1.04 mg /dL 0.00-0.50 Bacterial blood culture - 06/14/17 23:00 Bacterial blood culture NG NRG Bacterial blood culture - 06/14/17 23:15 Bacterial blood culture NG NRG Encounters ACCT No. Visit Date/Time Discharge Status Pt. Type Provider Facility Loc./Unit Complaint [id number] 04/30/2018 15:48:00 04/30/2018 16:55:00 DIS Emergency KONSTANTIN COFFEY MD [facility] ER UNABLE TO URINATE/TUBE /CATHETER ISSUES [id number] 06/14/2017 22:44:00 06/15/2017 00:13:00 DIS Emergency SEVEN ROACH DO [facility] ER LT GREAT TOE INFECTION [id number] 05/10/2016 22:01:00 05/10/2016 23:25:00 DIS Emergency KONSTANTIN COFFEY MD [facility] ER POSS ALLERGIC REACTION [id number] 12/09/2013 13:57:00 12/09/2013 23:59:59 CLS Emergency [id number] 10/20/2018 08:08:00 ACT Emergency LEANDER BRITO MD [facility] ER TROUBLE URINATING [id number] 08/26/2012 13:45:00 Document Registration [id number] 04/08/2012 10:33:00 Document Registration [id number] 03/14/2012 11:52:00 Document Registration [id number] 04/15/2015 15:05:42 04/15/2015 15:05:43 DIS Outpatient
[2018-10-20 10:07] LABS: BILIRUBIN,URINE NEGATIVE (NEGATIVE); CLARITY,URINE CLEAR; COLOR,URINE YELLOW; GLUCOSE, URINE (UA) 3+ (NEGATIVE); KETONES,URINE 2+ (NEGATIVE); LEUKOCYTE ESTERASE ,URINE NEGATIVE (NEGATIVE); NITRITE,URINE NEGATIVE (NEGATIVE); PH,URINE 5 (5-9); PROTEIN,URINE 1+ (NEGATIVE); UROBILINOGEN,URINE NORMAL (NORMAL)
[2018-10-20 10:15] LABS: BACTERIA,URINE TRACE /HPF; SQUAMOUS EPITHELIAL CELL,UR RARE /HPF; WBC,URINE RARE /HPF
--- NOTE | 2018-10-20 10:31 | ED GU-Male ---
General Chief Complaint: -Male Stated Complaint: TROUBLE URINATING Nursing Triage Note: Pt reports difficulty urinating since last night. Pt reports he is able to urinate but is only urinating small amounts. Pt also reports diarrhea x2 days and hemorrhoids. Source: patient Exam Limitations: no limitations History of Present Illness Date Seen by Provider: Oct 20, 2018 Time Seen by Provider: 09:50 Initial Comments Here with report of inability to urinate well since last night. Does have history of enlarged prostate. That is being followed by his urologist Dr. Arevalo. He has had multiple urinations of small amounts frequently but no significant urination since last night. Also notes a little bit of diarrhea with this. Denies fevers. Has had to have catheter in the past. Timing/Duration: yesterday, getting worse Severity/Quality: moderate, aching, cramping Location: suprapubic Radiation: none Activities at Onset: none Modifying Factors: Improves With Urinating Associated Symptoms: No dysuria, No fever/chills; urinary frequency Allergies and Home Medications Allergies Coded Allergies: Penicillins (Unverified Allergy, 05/08/10) Home Medications Clindamycin HCl 300 Mg Capsule, 300 MG PO QID Prescribed by: SEVEN ROACH on 06/15/17 0007 Clopidogrel Bisulfate 75 Mg Tablet, 1 EACH PO DAILY, (Reported) Diltiazem Hcl 300 Mg Cap.sr.24h, 1 EACH PO DAILY, (Reported) Glyburide 5 Mg Tablet, 1 EACH PO DAILY, (Reported) Losartan/Hydrochlorothiazide 1 Each Tablet, 1 EACH PO DAILY, (Reported) Metformin Hcl 1,000 Mg Tablet, 1 EACH PO BID WITH MEALS, (Reported) Prednisone 20 Mg Tab, 20 MG PO BID Prescribed by: KONSTANTIN LINDQUIST on 05/10/16 9034 Patient Home Medication List Home Medication List Reviewed: Yes Review of Systems Review of Systems Constitutional: see HPI; No chills, No fever Respiratory: no symptoms reported Cardiovascular: no symptoms reported Genitourinary: frequency, pain Psychiatric/Neurological: No Symptoms Reported Past Eslvwva-Refvug-Inddsa Hx Past Med/Social Hx: Reviewed Nursing Past Med/Soc Hx Patient Social History Alcohol Use: Denies Use Recreational Drug Use: No Smoking Status: Never a Smoker 2nd Hand Smoke Exposure: No Recent Foreign Travel: No Contact w/Someone Who Travel: No Recent Infectious Disease Expo: No Recent Hopitalizations: No Seasonal Allergies Seasonal Allergies: No Past Medical History Surgeries: No Respiratory: No Cardiac: Yes Hypertension Neurological: Yes Neuropathy Reproductive Disorders: No Sexually Transmitted Disease: No Genitourinary: Yes Prostate Problems Gastrointestinal: No Musculoskeletal: No Endocrine: Yes Diabetes, Non-Insulin dep HEENT: No Cancer: No Psychosocial: No Integumentary: Yes (DIABETIC FOOT ULCER-LEFT GREAT TOE) Blood Disorders: No Adverse Reaction/Blood Tranf: No Family Medical History Reviewed Nursing Family Hx Physical Exam Vital Signs Vital Signs - First Documented 10/20/18 08:30 Temp 96.3 Pulse 108 Resp 18 B/P (MAP) 160/90 (113) Pulse Ox 98 O2 Delivery Room Air Capillary Refill : Less Than 3 Seconds Height, Weight, BMI Height: 6'1.00" Weight: 217lbs. oz. 98.390653lh; BMI Method:Stated General Appearance: WD/WN, no apparent distress Cardiovascular: regular rate, rhythm, no murmur Respiratory: lungs clear, normal breath sounds Gastrointestinal: soft, tenderness, other (fullness in the suprapubic region) Male: normal genitalia, no hernia Back: normal inspection, no CVA tenderness, no vertebral tenderness Neurologic/Psychiatric: alert, oriented x 3 Skin: normal color, warm/dry Progress/Results/Core Measures Suspected Sepsis Recent Fever Within 48 Hours: No Infection Criteria Present: Suspected New Infection New/Unexplained Altered Menta: No Sepsis Screen: Possible Sepsis Risk SIRS Temperature:96.3 Pulse: 108 Respiratory Rate: 18 Blood Pressure 160 /90 Mean: 113 Results/Orders Lab Results Laboratory Tests Test 10/20/18 09:57 Range/Units Urine Color YELLOW Urine Clarity CLEAR Urine pH 5 5-9 Urine Specific [place] 1.015 L 1.016-1.022 Urine Protein 1+ H NEGATIVE Urine Glucose (UA) 3+ H NEGATIVE Urine Ketones 2+ H NEGATIVE Urine Nitrite NEGATIVE NEGATIVE Urine Bilirubin NEGATIVE NEGATIVE Urine Urobilinogen NORMAL NORMAL MG/DL Urine Leukocyte Esterase NEGATIVE NEGATIVE Urine RBC (Auto) 2+ H NEGATIVE Urine RBC 2-5 H /HPF Urine WBC RARE /HPF Urine Squamous Epithelial Cells RARE /HPF Urine Crystals NONE /LPF Urine Bacteria TRACE /HPF Urine Casts NONE /LPF Urine Mucus SMALL H /LPF Urine Culture Indicated NO My Orders Orders - LEANDER BRITO MD Catheter(Urinary) Insert & Ass 03,15 (12/13/18 09:43) Ua Culture If Indicated (10/20/18 09:43) Vital Signs/I&O 10/20/18 08:30 Temp 96.3 Pulse 108 Resp 18 B/P (MAP) 160/90 (113) Pulse Ox 98 O2 Delivery Room Air Capillary Refill : Less Than 3 Seconds Blood Pressure Mean: 113 Progress Note : Progress Note Seen and evaluated. Bladder scanner done which showed 760 mL. Chen catheter placed by nursing with large amount of output of urine and patient much more comfortable afterwards. UA obtained. No acute findings. We will initiate antibiotics for a few days given the current symptoms. Chen converted to leg bag. He will follow-up with his urologist. Discharged home with return precautions. Patient verbalize understanding instructions and agreement with plan. Departure Impression Primary Impression: Urinary retention Disposition: 01 HOME, SELF-CARE Condition: Improved Departure-Patient Inst. Decision time for Depature: 10:49 Referrals: RADHA HORAN MD (PCP/Family) Primary Care Physician Patient Instructions: How to Care for Your Chen Catheter, Male, Urinary Retention (DC) Add. Discharge Instructions: All discharge instructions reviewed with patient and/or family. Voiced understanding. Continue Chen catheter. Call your urologist today for appointment within the next week. Return for worse pain, fever, vomiting, weakness, breathing problems or other concerns as needed. Take medications as directed. Scripts Cephalexin (Cephalexin) 500 Mg Tablet 500 MG PO BID, #14 TAB 0 Refills Prov: LEANDER BRITO MD 10/20/18 LEANDER BRITO MD Oct 20, 2018 10:31
[2018-10-20] MEDS ORDERED: CEPH500T PO (10:50)
[2018-10-20 10:59] VITALS: BP 123/69
== END 2018-10-20 10:59 | disposition home or self-care (01) ==
LOC: EDUNIT# 08:07 → ER 08:08
DX: R33.9 Retention of urine, unspecified (principal); I10 Essential (primary) hypertension; E11.40 Type 2 diabetes mellitus with diabetic neuropathy, unspecified; E11.621 Type 2 diabetes mellitus with foot ulcer; L97.529 Non-pressure chronic ulcer of other part of left foot with unspecified severity; Z88.0 Allergy status to penicillin; Z79.02 Long term (current) use of antithrombotics/antiplatelets; Z79.4 Long term (current) use of insulin; Z79.52 Long term (current) use of systemic steroids
CPT/HCPCS: 51702; 81000

== ENCOUNTER 2019-11-29 14:07 | Emergency (ER) | payer MEDICARE ==
[~2019-11-29] VITALS: Ht 187 cm; Wt 103.0 kg
[~2019-11-29 14:07] MED LIST changes: +CEPH500T PO
--- NOTE | 2019-11-29 14:22 | ED General ---
General Chief Complaint: Rib Pain Stated Complaint: RIB INJ Nursing Triage Note: STATES HE WAS IN THE BARN LEANING OVER A 2X4 AND FELT HIS RIGHT RIB POP ON WEDNESDAY. CONTINUES TO HAVE PAIN. Nursing Sepsis Screen: No Definite Risk Source of Information: Patient Exam Limitations: No Limitations History of Present Illness Date Seen by Provider: Nov 29, 2019 Time Seen by Provider: 14:17 Initial Comments To ER with right sided chest wall pain in the ribs. This began on Wednesday when he was bending over 2 x 6 in his barn and felt a popping sensation. He had no pain initially but as the day went on he developed increasing tenderness. He denies shortness of breath or cough. Timing/Duration: 2-3 Days Severity: Moderate Allergies and Home Medications Allergies Coded Allergies: Penicillins (Unverified Allergy, 05/08/10) Home Medications Clopidogrel Bisulfate 75 Mg Tablet, 1 EACH PO DAILY, (Reported) Diltiazem Hcl 300 Mg Cap.sr.24h, 1 EACH PO DAILY, (Reported) Glyburide 5 Mg Tablet, 1 EACH PO DAILY, (Reported) Losartan/Hydrochlorothiazide 1 Each Tablet, 1 EACH PO DAILY, (Reported) Metformin Hcl 1,000 Mg Tablet, 1 EACH PO BID WITH MEALS, (Reported) Prednisone 20 Mg Tab, 20 MG PO BID Prescribed by: KONSTANTIN LINDQUIST on 05/10/16 3523 Patient Home Medication List Home Medication List Reviewed: Yes Review of Systems Review of Systems Constitutional: see HPI EENTM: see HPI Respiratory: see HPI Cardiovascular: see HPI Genitourinary: no symptoms reported Musculoskeletal: no symptoms reported Skin: no symptoms reported Psychiatric/Neurological: No Symptoms Reported Hematologic/Lymphatic: No Symptoms Reported Past Jgxstql-Nroqng-Zcdkzq Hx Patient Social History 2nd Hand Smoke Exposure: No Recent Foreign Travel: No Contact w/Someone Who Travel: No Recent Infectious Disease Expo: No Recent Hopitalizations: No Seasonal Allergies Seasonal Allergies: No Past Medical History Surgeries: Yes (FOOT) Respiratory: No Cardiac: Yes Hypertension Neurological: Yes Neuropathy Reproductive Disorders: No Sexually Transmitted Disease: No Genitourinary: Yes Prostate Problems Gastrointestinal: No Musculoskeletal: No Endocrine: Yes Diabetes, Non-Insulin dep HEENT: No Cancer: No Psychosocial: No Integumentary: Yes (DIABETIC FOOT ULCER-LEFT GREAT TOE) Blood Disorders: No Adverse Reaction/Blood Tranf: No Physical Exam Vital Signs Vital Signs - First Documented 11/29/19 14:14 Temp 37.0 Pulse 64 Resp 16 B/P (MAP) 163/82 (109) Pulse Ox 98 O2 Delivery Room Air Capillary Refill : Less Than 3 Seconds Height, Weight, BMI Height: 6'1.00" Weight: 217lbs. oz. 98.552440qi; 29.00 BMI Method:Stated General Appearance: No Apparent Distress, WD/WN, Other (laughing, joking with me smiling and pleasant and clinically does not appear to have a rib fracture.) Eyes: Bilateral Eye Normal Inspection, Bilateral Eye PERRL Neck: Full Range of Motion, Normal Inspection Respiratory: No Accessory Muscle Use, No Respiratory Distress Cardiovascular: Regular Rate, Rhythm, Normal Peripheral Pulses Gastrointestinal: Normal Bowel Sounds, Non Tender, Soft Extremity: Normal Capillary Refill, Normal Inspection Neurologic/Psychiatric: Alert, Oriented x3 Skin: Normal Color, Warm/Dry, Other (there is no ecchymosis of the skin overlying the area of tenderness to the lateral right chest wall.) Progress/Results/Core Measures Suspected Sepsis Recent Fever Within 48 Hours: No Infection Criteria Present: None New/Unexplained Altered Menta: No Sepsis Screen: No Definite Risk SIRS Temperature: Pulse: 64 Respiratory Rate: 16 Blood Pressure 163 /82 Mean: 109 Results/Orders My Orders Orders - BONNIE FOOTE APRN Ribs/Unilateral With Chest (11/29/19 14:27) Vital Signs/I&O 11/29/19 14:14 Temp 37.0 Pulse 64 Resp 16 B/P (MAP) 163/82 (109) Pulse Ox 98 O2 Delivery Room Air Capillary Refill : Less Than 3 Seconds Blood Pressure Mean: 109 Departure Impression Primary Impression: Bruised rib Disposition: 01 HOME, SELF-CARE Condition: Stable Departure-Patient Inst. Decision time for Depature: 14:32 Referrals: NO,LOCAL PHYSICIAN (PCP) Primary Care Physician Patient Instructions: Bruised Rib Add. Discharge Instructions: 1. Return to ER for any concerns 2. Follow-up with your doctor next week 3. Tylenol and appropriate for pain control. All discharge instructions reviewed with patient and/or family. Voiced understanding. BONNIE FOOTE APRN Nov 29, 2019 14:21
--- NOTE | 2019-11-29 14:48 | Diagnostic Imaging Report ---
INDICATION: Pain in the lower right rib region. TIME OF EXAM: 02:40 p.m. FINDINGS: Multiple views of the chest and right ribs were obtained. No displaced rib fracture is identified. No pulmonary contusion, effusion, or pneumothorax is detected. IMPRESSION: No acute feature is detected. Dictated by: Dictated on workstation # [id number]
[2019-11-29 14:56] VITALS: BP 163/82
== END 2019-11-29 14:56 | disposition home or self-care (01) ==
LOC: EDUNIT# 14:07 → ER 14:08
DX: S20.211A Contusion of right front wall of thorax, initial encounter (principal); I10 Essential (primary) hypertension; E11.40 Type 2 diabetes mellitus with diabetic neuropathy, unspecified; E11.621 Type 2 diabetes mellitus with foot ulcer; L97.529 Non-pressure chronic ulcer of other part of left foot with unspecified severity; Z88.0 Allergy status to penicillin; Z79.02 Long term (current) use of antithrombotics/antiplatelets; Z79.84 Long term (current) use of oral hypoglycemic drugs; Z79.52 Long term (current) use of systemic steroids; X50.1XXA Overexertion from prolonged static or awkward postures, initial encounter; Y92.71 Barn as the place of occurrence of the external cause
CPT/HCPCS: 71101

== ENCOUNTER 2023-05-31 20:12 | Inpatient (IN) | payer MEDICARE ==
[~2023-05-31] VITALS: Ht 187 cm; Wt 95.0 kg
[~2023-05-31 20:12] MED LIST changes: +CLIN-144 PO; -CLIN300C11 PO
--- NOTE | 2023-05-31 20:35 | ED Fall/Injury ---
General Chief Complaint: Trauma-Non Activation Stated Complaint: FALL/BACK PAIN Nursing Triage Note: PT ARRIVED POV WITH CC OF FALL TODAY. PT HAS AN UNWITNESSED FALL IN THE LIVING ROOM AT HOME. PTS STATES THAT HE HAS HAD A DECREASE IN ABILITY TO WALK IN THE LAST MONTH. Source: patient Exam Limitations: no limitations (CAROL MARROQUIN) History of Present Illness Date Seen by Provider: May 31, 2023 Time Seen by Provider: 20:30 Initial Comments Patient is a 73-year-old male who presents the ED for valuation after a fall. According to patient found him in the living room on the ground. Unclear when patient fell. Patient was diagnosed dementia 3 months ago. She states he has had a rapid decline over the past month. Numerous falls over the past few months. Noted shuffling walking. Unsteady gait. Patient has been complaining of left-sided rib pain but no pain at this time. Fell today but states he has no current complaint. according to she is having difficulty helping and assisting patient at home. Does see a neurologist at . They noted a rapid decrease in his mentation. They have noticed that patient is more confused. Has not been his normal self. No known cardiac history but does have a history of diabetes. No fever, cough, runny nose, sore throat, abdominal pain vomiting, diarrhea. Patient does take Seroquel and citalopram. Patient is on the Plavix for history of stroke several years ago. Patient is not wanting to eat or drink as much at home. Increased weakness and fatigue (CAROL MARROQUIN) Allergies and Home Medications Allergies Coded Allergies: Penicillins (Unverified Allergy, Unknown, 05/31/23) Patient Home Medication List Home Medication List Reviewed: Yes (LEANDER BRITO MD) Clopidogrel Bisulfate (Plavix 75 Mg) 75 Mg Tablet, 1 EACH PO DAILY, (Reported) Entered as Reported by: PENG SAVAGE on 05/08/10 122 Diltiazem Hcl (Diltiazem Cd 300 Mg (Once Daily)) 300 Mg Cap.sr.24h, 1 EACH PO DAILY, (Reported) Entered as Reported by: PENG SAVAGE on 05/08/107 Glyburide (Glyburide) 5 Mg Tablet, 1 EACH PO DAILY, (Reported) Entered as Reported by: PENG SAVAGE on 05/08/10 1227 Losartan/Hydrochlorothiazide (Losartan-Hctz 100-25 Mg Tab) 1 Each Tablet, 1 EACH PO DAILY, (Reported) Entered as Reported by: PENG SAVAGE on 05/08/10 1227 Metformin Hcl (Metformin 1000 Mg) 1,000 Mg Tablet, 1 EACH PO BID WITH MEALS, (Reported) Entered as Reported by: PENG SAVAGE on 05/08/10 1227 Prednisone (Prednisone) 20 Mg Tab, 20 MG PO BID Prescribed by: KONSTANTIN LINDQUIST on 05/10/16 1502 Review of Systems Review of Systems Constitutional: No chills, No diaphoresis, No fever, No malaise Eyes: Denies Drainage, Denies Decreased Acuity, Denies Pain, Denies Photophobia Ears, Nose, Mouth, Throat: denies ear pain, denies ear discharge Respiratory: No cough, No dyspnea on exertion Cardiovascular: No chest pain Gastrointestinal: No abdominal pain, No diarrhea, No nausea, No vomiting Genitourinary: No decreased output, No discharge, No dysuria, No frequency Musculoskeletal: No back pain, No joint pain Skin: No change in color, No change in hair/nails (CRAOL MARROQUIN) All Other Systems Reviewed Negative Unless Noted: Yes (CAROL MARROQUIN) Past Hgghrhy-Hzikvc-Yfeoek Hx Patient Social History Tobacco Use?: No Substance use?: No Alcohol Use?: No (CAROL MARROQUIN) Seasonal Allergies Seasonal Allergies: No (CAROL MARROQUIN) Past Medical History Surgeries: Yes (FOOT) Respiratory: No Cardiac: Yes Hypertension Neurological: Yes Neuropathy Reproductive Disorders: No Sexually Transmitted Disease: No Genitourinary: Yes Prostate Problems Gastrointestinal: No Musculoskeletal: No Endocrine: Yes Diabetes, Non-Insulin dep HEENT: No Cancer: No Psychosocial: No Integumentary: Yes (DIABETIC FOOT ULCER-LEFT GREAT TOE) Blood Disorders: No Adverse Reaction/Blood Tranf: No (CAROL MARROQUIN) Physical Exam Vital Signs Vital Signs - First Documented 05/31/23 20:20 Pulse 86 B/P (MAP) 152/91 (111) Pulse Ox 94 O2 Delivery Room Air (LEANDER BRITO MD) Vital Signs Capillary Refill : (CAROL MARROQUIN) Height, Weight, BMI Height: 6'1.00" Weight: 217lbs. oz. 98.470336eo; 26.00 BMI Method:Stated General Appearance: WD/WN, no apparent distress HEENT: PERRL/EOMI, normal ENT inspection, TMs normal, pharynx normal Neck: non-tender, full range of motion, supple, normal inspection Cardiovascular: regular rate, rhythm, no edema, no gallop, no JVD Respiratory: chest non-tender, lungs clear, normal breath sounds, no respiratory distress Gastrointestinal: normal bowel sounds, non tender, soft, no organomegaly Pelvic: normal external exam, normal adnexa Back: normal inspection, no CVA tenderness, no vertebral tenderness Extremities: normal range of motion, non-tender, normal inspection, no pedal edema Neurologic/Psychiatric: primer inserting machine adjuster II-XII nml as tested, no motor/sensory deficits, alert, normal mood/affect, oriented x 3 Skin: normal color, warm/dry (CAROL MARROQUIN) Progress/Results/Core Measures Results/Orders Lab Results Laboratory Tests Test 05/31/23 20:32 05/31/23 21:44 Range/Units White Blood Count 8.7 4.3-11.0 10^3/uL Red Blood Count 5.11 4.30-5.52 10^6/uL Hemoglobin 15.1 13.3-17.7 g/dL Hematocrit 45 40-54 % Mean Corpuscular Volume 89 80-99 fL Mean Corpuscular Hemoglobin 30 25-34 pg Mean Corpuscular Hemoglobin Concent 33 32-36 g/dL Red Cell Distribution Width 13.1 10.0-14.5 % Platelet Count 274 130-400 10^3/uL Mean Platelet Volume 9.2 9.0-12.2 fL Immature Granulocyte % (Auto) 1 % Neutrophils (%) (Auto) 63 42-75 % Lymphocytes (%) (Auto) 22 12-44 % Monocytes (%) (Auto) 10 0-12 % Eosinophils (%) (Auto) 4 0-10 % Basophils (%) (Auto) 1 0-10 % Neutrophils # (Auto) 5.5 1.8-7.8 10^3/uL Lymphocytes # (Auto) 1.9 1.0-4.0 10^3/uL Monocytes # (Auto) 0.9 0.0-1.0 10^3/uL Eosinophils # (Auto) 0.3 0.0-0.3 10^3/uL Basophils # (Auto) 0.1 0.0-0.1 10^3/uL Immature Granulocyte # (Auto) 0.0 0.0-0.1 10^3/uL Sodium Level 137 135-145 MMOL/L Potassium Level 4.0 3.6-5.0 MMOL/L Chloride Level 103 98-107 MMOL/L Carbon Dioxide Level 21 21-32 MMOL/L Anion Gap 13 5-14 MMOL/L Blood Urea Nitrogen 27 H 7-18 MG/DL Creatinine 0.91 0.60-1.30 MG/DL Estimat Glomerular Filtration Rate 88 BUN/Creatinine Ratio 30 Glucose Level 316 H 70-105 MG/DL Calcium Level 9.6 8.5-10.1 MG/DL Corrected Calcium 9.7 8.5-10.1 MG/DL Magnesium Level 1.9 1.6-2.4 MG/DL Total Bilirubin 0.8 0.1-1.0 MG/DL Aspartate Amino Transf (AST/SGOT) 12 5-34 U/L Alanine Aminotransferase (ALT/SGPT) 11 0-55 U/L Alkaline Phosphatase 154 H 40-136 U/L Total Creatine Kinase 60 30-200 U/L Total Protein 6.7 6.4-8.2 GM/DL Albumin 3.9 3.2-4.5 GM/DL Urine Color YELLOW Urine Clarity CLEAR Urine pH 5.5 5-9 Urine Specific [place] >=1.030 1.016-1.022 Urine Protein 1+ H NEGATIVE Urine Glucose (UA) 3+ H NEGATIVE Urine Ketones TRACE H NEGATIVE Urine Nitrite NEGATIVE NEGATIVE Urine Bilirubin NEGATIVE NEGATIVE Urine Urobilinogen 1.0 < = 1.0 MG/DL Urine Leukocyte Esterase NEGATIVE NEGATIVE Urine RBC (Auto) 3+ H NEGATIVE Urine RBC 10-25 H /HPF Urine WBC NONE /HPF Urine Squamous Epithelial Cells 5-10 /HPF Urine Crystals NONE /LPF Urine Bacteria TRACE /HPF Urine Casts NONE /LPF Urine Mucus MODERATE H /LPF Urine Culture Indicated NO (LEANDER BRITO MD) Medications Given in ED Current Medications Medications Dose Ordered Sig/Mirela Route Start Time Stop Time Status Last Admin Dose Admin Lidocaine HCl 10 ml ONCE ONCE TOP 05/31/23 21:45 05/31/23 21:46 DC 05/31/23 21:45 10 ML (LEANDER BRITO MD) Vital Signs/I&O 05/31/23 05/31/23 20:20 22:27 Pulse 86 90 95 B/P (MAP) 152/91 (111) 143/83 (103) 152/97 (115) Pulse Ox 94 O2 Delivery Room Air (LEANDER BRITO MD) Blood Pressure Mean: 111 Departure Communication (PCP) Patient with rapid decline over the past month. Diagnosed with dementia 3 months ago. Sees a neurologist at [facility]. Family can not recall the name. Frequent falls at home fell this evening was found in the living room. Patient on arrival no current complaint. No evidence of trauma to the head chest abdomen or back. Difficulty standing which seems to be a concern for the family over the past month. History of stroke currently on Plavix. Was complaining of left-sided rib pain, low back pain according to family but denies of any pain or has any tenderness at this time. Generalized lab work, CT scan head and cervical neck, lumbar spine, chest x-ray and urinalysis was ordered. CT scan of the head and cervical neck was negative for acute fracture. Lumbar spine negative for acute fracture. Chest x-ray negative for pneumonia. Right pulmonary nodules noted. Will need further outpatient follow-up. CBC, CMP grossly unremarkable besides blood sugar 316 slight increase in BUN. Concern for dehydration. Patient was started on a liter of fluid 100 mls per hour. Urinalysis negative for infection but positive for hematuria and glucose. Concern for increased confusion. Concern for rapid progressive dementia. Do not feel that patient is safe to go home at this time. is having difficulty assisting him at this time. Discussed admission with Dr. Dubois who agreed to accept. Social work consult. (CAROL MARROQUIN) Impression Primary Impression: Dehydration Additional Impressions: AMS (altered mental status) Hyperglycemia Rapidly progressive dementia Disposition: ADMITTED INPATIENT Condition: Stable Admissions Decision to Admit Reason: Admit from ER (General) Decision to Admit/Date: May 31, 2023 Time/Decision to Admit Time: 21:33 (CAROL MARROQUIN) Departure-Patient Inst. Referrals: NO,LOCAL PHYSICIAN (PCP/Family) Primary Care Physician CAROL MARROQUIN May 31, 2023 20:35 LEANDER BRITO MD Jun 01, 2023 05:53
[2023-05-31 20:43] LABS: BASOPHILS # (AUTO) 0.1 10^3/uL (0.0-0.1); BASOPHILS % (AUTO) 1 % (0-10); EOSINOPHILS # (AUTO) 0.3 10^3/uL (0.0-0.3); EOSINOPHILS % (AUTO) 4 % (0-10); HEMATOCRIT 45 % (40-54); HEMOGLOBIN 15.1 g/dL (13.3-17.7); LYMPHOCYTES # (AUTO) 1.9 10^3/uL (1.0-4.0); LYMPHOCYTES % (AUTO) 22 % (12-44); MEAN CORPUSCULAR HEMOGLOBIN 30 pg (25-34); MEAN CORPUSCULAR HGB CONC 33 g/dL (32-36); MEAN CORPUSCULAR VOLUME 89 fL (80-99); MEAN PLATELET VOLUME 9.2 fL (9.0-12.2); MONOCYTES # (AUTO) 0.9 10^3/uL (0.0-1.0); MONOCYTES % (AUTO) 10 % (0-12); NEUTROPHILS # (AUTO) 5.5 10^3/uL (1.8-7.8); NEUTROPHILS % (AUTO) 63 % (42-75); PLATELET COUNT 274 10^3/uL (130-400); WHITE BLOOD COUNT 8.7 10^3/uL (4.3-11.0)
[2023-05-31 21:03] LABS: ALBUMIN 3.9 GM/DL (3.2-4.5); BILIRUBIN,TOTAL 0.8 MG/DL (0.1-1.0); CALCIUM 9.6 MG/DL (8.5-10.1); CREATININE SERUM 0.91 MG/DL (0.60-1.30); MAGNESIUM 1.9 MG/DL (1.6-2.4); TOTAL PROTEIN 6.7 GM/DL (6.4-8.2)
--- NOTE | 2023-05-31 21:04 | Diagnostic Imaging Report ---
Fall, pain EXAMINATION: Chest 05/31/2023 Single view chest Linear atelectasis in the left lung base with remaining lungs clear. Nodules in the right lung base which could be followed for stability. No pneumothorax or effusions. Heart and pulmonary vasculature normal. IMPRESSION: 1. Tiny nodules right lung base, follow-up recommended. Left base atelectasis also noted. Dictated by: Dictated on workstation # [id number]
--- NOTE | 2023-05-31 21:14 | Diagnostic Imaging Report ---
PROCEDURE: CT lumbar spine without contrast. TECHNIQUE: Multiple contiguous axial images were obtained through the lumbar spine without the use of intravenous contrast. Sagittal and coronal reformations were then performed. Auto Exposure Controls were utilized during the CT exam to meet ALARA standards for radiation dose reduction. INDICATION: Fall, pain EXAMINATION: CT lumbar spine without contrast 05/31/2023 FINDINGS: There is normal height and alignment of the vertebral bodies. No compression deformities. Multilevel spur disc complexes most pronounced at L5-S1 noted. There is likely at least moderate central stenosis at this level. No fractures. No acute process in the visualized intra-abdominal structures. IMPRESSION: Degenerative findings with no acute osseous abnormality appreciated. Dictated by: Dictated on workstation # [id number]
[2023-05-31] MEDS ORDERED: LIDOCAINE UROJET 2% GEL 10 ML PKG ONE (21:36)
[2023-05-31] MEDS ORDERED: LIDOCAINE UROJET 2% GEL 10 ML PKG TOP ONE (21:45)
--- NOTE | 2023-05-31 21:52 | Diagnostic Imaging Report ---
PROCEDURE: CT head and CT cervical spine without contrast. TECHNIQUE: Multiple contiguous axial images were obtained through the brain and cervical spine without the use of intravenous contrast. Sagittal and coronal reformations through the cervical spine were then performed. Auto Exposure Controls were utilized during the CT exam to meet ALARA standards for radiation dose reduction. INDICATION: Fall, pain EXAMINATION: CT brain, CT cervical spine 05/31/2023 FINDINGS: Brain: There is chronic ischemic disease in a periventricular and deep white matter distribution. Atrophy noted with prominence of the ventricles perhaps due to the atrophy with normal pressure hydrocephalus not excluded. There is no superimposed acute hemorrhage or infarct. No mass, mass effect or midline shift. No hydrocephalus. Paranasal sinuses and mastoid air cells clear. IMPRESSION: No acute intracranial process with chronic findings noted. CT cervical spine: There is normal height and alignment of the vertebral bodies with no fractures or subluxations appreciated. Multilevel bilateral facet hypertrophy with spur disc complexes suspected. Prevertebral soft tissues demonstrate prominence of the visualized thyroid better characterized sonographically non-emergently. Lung apices clear. IMPRESSION: 1. Multilevel degenerative findings. No acute process. Dictated by: Dictated on workstation # [id number]
[2023-05-31 21:53] LABS: BILIRUBIN,URINE NEGATIVE (NEGATIVE); CLARITY,URINE CLEAR; COLOR,URINE YELLOW; GLUCOSE, URINE (UA) 3+ (NEGATIVE); KETONES,URINE TRACE (NEGATIVE); LEUKOCYTE ESTERASE ,URINE NEGATIVE (NEGATIVE); NITRITE,URINE NEGATIVE (NEGATIVE); PH,URINE 5.5 (5-9); PROTEIN,URINE 1+ (NEGATIVE)
[2023-05-31 22:20] LABS: BACTERIA,URINE TRACE /HPF
[2023-05-31 22:27] VITALS: BP_SYST 143; BP_SYST 152; BP_DIAS 83; BP_DIAS 97
[2023-05-31 23:00] VITALS: BP 167/89
[2023-05-31] MEDS: NS IV 1000 ML 1,000 ML IV SCH (23:36)
[2023-06-01 03:07] VITALS: BP 155/87
[2023-06-01] MEDS: inSUlin ASPART (NovoLOG) 1 UNIT/0.01 ML (CHARGE PER UNIT) SC SCH ×4 (06:01→22:02)
[2023-06-01] MEDS ORDERED: CATHETER FLUSH 10 ML SYR IV PRN (06:45)
[2023-06-01 07:45] VITALS: BP 160/80
[2023-06-01 08:27] LABS: CALCIUM 8.7 MG/DL (8.5-10.1); CREATININE SERUM 0.78 MG/DL (0.60-1.30); POTASSIUM 3.7 MMOL/L (3.6-5.0)
[2023-06-01] MEDS: NS IV 1000 ML 1,000 ML IV SCH ×2 (09:19→19:53)
--- NOTE | 2023-06-01 11:07 | History & Physical-Hospitalist ---
History of Present Illness HPI/Chief Complaint Patient is 73-year-old male with past medical history of hypertension, oqu-udiqyzz-tbeubssvx diabetes, dementia who presented to the emergency department due to debility and confusion. When I entered the room he was confused and stated he was "making deals." His son and are at bedside to provide all the history. They state that he has had dementia but over the past 4 to 6 weeks he has had a rapid decline in his mentation. He follows with the memory care clinic and per their report he has had CTs, MRIs, even a PET scan to work-up his dementia. They report no issues have been found other than his baseline dementia. He has been falling at home and brought him in for evaluation thinking he may have a urinary tract infection. He is urine was clean but he was somewhat dehydrated so was admitted for IV fluids. This morning they report he is still as confused as he was when he came in. They are interested in pursuing mcc placement. Source: patient Date Seen 06/01/23 Time Seen by a Provider: 11:02 Attending Physician No,Local Physician PCP Admitting Physician: Juan Dubois MD Attending Physician: Juan Dubois MD Referring Physician Date of Admission May 31, 2023 at 22:40 Home Medications & Allergies Home Medications Reviewed patient Home Medication Reconciliation performed by pharmacy medication reconciliations sound technician and/or nursing. Patients Allergies have been reviewed. Allergies Allergies Coded Allergies Penicillins (Unverified Allergy, Unknown, 05/31/23) Past Uuemrlv-Uskfjp-Tfiyfj Hx Patient Social History Tobacco Use?: No Use of E-Cig and/or Vaping dev: No Substance use?: No Alcohol Use?: No Pt feels they are or have been: No Seasonal Allergies Seasonal Allergies: No Current Status Advance Directives: Unable to obtain Communicates: Verbally Primary Language: Angolan Preferred Spoken Language: Angolan Is interpretation needed?: No Sensory deficits: Vision impairment Implanted or Applied Medical D: None Past Medical History Hypertension Neuropathy Sexually Transmitted Disease: No Prostate Problems Diabetes, Non-Insulin dep Blood Disorders: No Adverse Reaction/Blood Tranf: No Review of Systems Constitutional: see HPI Physical Exam Physical Exam Vital Signs Vital Signs - First Documented 05/31/23 05/31/23 05/31/23 20:20 22:41 23:00 Temp 36.6 Pulse 86 Resp 20 B/P (MAP) 152/91 (111) Pulse Ox 94 O2 Delivery Room Air Capillary Refill : Height, Weight, BMI Height: 6'1.00" Weight: 217lbs. oz. 98.901790fo; 26.79 BMI Method:Stated General Appearance: No Apparent Distress, Chronically ill Respiratory: Lungs Clear, No Respiratory Distress Cardiovascular: Regular Rate, Rhythm, No Murmur Gastrointestinal: Normal Bowel Sounds, Soft Extremity: No Pedal Edema Neurologic/Psychiatric: Alert, Disoriented Results Results/Procedures Labs Laboratory Tests 05/31/23 20:32 06/01/23 08:05 06/02/23 05:35 06/02/23 15:30 Patient resulted labs reviewed. Imaging: Reviewed Imaging Report Imaging [facility], [place] NAME: LATONYA QURESHI [facility] REC#: [id number] PT STATUS: REG ER : 1950 PHYSICIAN: CAROL MARROQUIN ADMIT DATE: 05/31/23/ER Signed Date of Exam:05/31/23 CT HEAD/CERVICAL SPINE WO PROCEDURE: CT head and CT cervical spine without contrast. TECHNIQUE: Multiple contiguous axial images were obtained through the brain and cervical spine without the use of intravenous contrast. Sagittal and coronal reformations through the cervical spine were then performed. Auto Exposure Controls were utilized during the CT exam to meet ALARA standards for radiation dose reduction. INDICATION: Fall, pain EXAMINATION: CT brain, CT cervical spine 05/31/2023 FINDINGS: Brain: There is chronic ischemic disease in a periventricular and deep white matter distribution. Atrophy noted with prominence of the ventricles perhaps due to the atrophy with normal pressure hydrocephalus not excluded. There is no superimposed acute hemorrhage or infarct. No mass, mass effect or midline shift. No hydrocephalus. Paranasal sinuses and mastoid air cells clear. IMPRESSION: No acute intracranial process with chronic findings noted. CT cervical spine: There is normal height and alignment of the vertebral bodies with no fractures or subluxations appreciated. Multilevel bilateral facet hypertrophy with spur disc complexes suspected. Prevertebral soft tissues demonstrate prominence of the visualized thyroid better characterized sonographically non-emergently. Lung apices clear. IMPRESSION: 1. Multilevel degenerative findings. No acute process. Dictated by: Dictated on workstation # [id number] Dict: 05/31/232109 Trans: 05/31/232226 COUNTS INCLUDE 234 BEDS AT THE [facility] Interpreted by: MIGUEL SOTELO MD Electronically signed by: MIGUEL SOTELO MD 05/31/232226 [facility]. [place], [place] NAME: LATONYA QURESHI [facility] REC#: [id number] PT STATUS: REG ER : 1950 PHYSICIAN: CAROL MARROQUIN ADMIT DATE: 05/31/23/ER Signed Date of Exam:05/31/23 CT LUMBAR SPINE WO PROCEDURE: CT lumbar spine without contrast. TECHNIQUE: Multiple contiguous axial images were obtained through the lumbar spine without the use of intravenous contrast. Sagittal and coronal reformations were then performed. Auto Exposure Controls were utilized during the CT exam to meet ALARA standards for radiation dose reduction. INDICATION: Fall, pain EXAMINATION: CT lumbar spine without contrast 05/31/2023 FINDINGS: There is normal height and alignment of the vertebral bodies. No compression deformities. Multilevel spur disc complexes most pronounced at L5-S1 noted. There is likely at least moderate central stenosis at this level. No fractures. No acute process in the visualized intra-abdominal structures. IMPRESSION: Degenerative findings with no acute osseous abnormality appreciated. Dictated by: Dictated on workstation # [id number] Dict: 05/31/232104 Trans: 05/31/232226 [facility] Interpreted by: MIGUEL SOTELO MD Electronically signed by: MIGUEL SOTELO MD 05/31/232226 Assessment/Plan Admission Diagnosis Dementia Admission Status: Inpatient Order (span 2 midnights) Reason for Inpatient Admission: see below Assessment and Plan Dementia Dehydration Debility PT Continue IVF Check TSH/Ammonia Reviewed imaging- no acute findings Called [facility] to discuss previous work up- awaiting call back Social Work consulted HTN HLD NIDDMII Continue home meds as appropriate SSI DVT ppx: Lovenox Diagnosis/Problems Diagnosis/Problems (1) AMS (altered mental status) Status: Acute (2) Hyperglycemia Status: Acute (3) Dehydration Status: Acute MARTA WARD MD Jun 01, 2023 11:07
[2023-06-01] MEDS ORDERED: FINA5TAB6 PO (11:52)
[2023-06-01] MEDS ORDERED: EMPA25TA PO (11:52)
[2023-06-01] MEDS ORDERED: QUET25TA35 PO ×2 (11:52)
[2023-06-01] MEDS ORDERED: ATOR10TA66 PO (11:52)
[2023-06-01] MEDS ORDERED: TMSL.4C PO (11:52)
[2023-06-01] MEDS ORDERED: LOSA1TAB23 PO (11:52)
[2023-06-01] MEDS ORDERED: METF-399 PO (11:52)
[2023-06-01] MEDS ORDERED: DILT300C51 PO (11:52)
[2023-06-01] MEDS ORDERED: CLOP75TA28 PO (11:52)
[2023-06-01] MEDS ORDERED: CITA20TA9 PO (11:52)
[2023-06-01] MEDS ORDERED: CETI10TA17 PO (11:52)
[2023-06-01 11:55] VITALS: BP 164/78
[2023-06-01] MEDS: HALOPERIDOL 5 MG/ML (HALDOL) VIAL IV PRN ×2 (12:56→19:55)
[2023-06-01] MEDS: CATHETER FLUSH 10 ML SYR IV SCH ×2 (12:58→19:54)
[2023-06-01] MEDS: ENOXAPARIN 40 MG/0.4 ML (LOVENOX) SYR SQ SCH (14:33)
--- NOTE | 2023-06-01 15:57 | Physical Therapy Evaluation ---
PT Evaluation-General Medical Diagnosis Admission Date May 31, 2023 at 22:40 Medical Diagnosis: Dehydration, AMS Onset Date: May 31, 2023 Therapy Diagnosis Therapy Diagnosis: Gait deficit, strength deficit Height/Weight Height (Feet): 6 Height (Inches): 1.00 Weight (Pounds): 217 Precautions Precautions/Isolations: Fall Prevention, Standard Precautions Weight Bear Status Right Lower Extremity: Right Full Weight Bearing Left Lower Extremity: Left Full Weight Bearing Referral Physician: Dr. Bloom Reason for Referral: Evaluation/Treatment Medical History Reviewed History: Yes Social History Home: Current Living Status: Patient unable to answer questions due to confusion. No family present. Prior Prior Level of Function SCALE: Activities may be completed with or without assistive devices. 6-Euizzvmvpd-pfzvldg completes the activity by him/herself with no assistance from a helper. 5-Set-up or Clean-up Assistance-helper sets up or cleans up; patient completes activity. [place] assists only prior to or following the activity. 4-Supervision or Touching Assistance-helper provides verbal cues and/or touching/steadying and/or contact guard assistance as patient completes activity. Assistance may be provided throughout the activity or intermittently. 3-Partial/Moderate Assistance-helper does LESS THAN HALF the effort. [place] lifts, holds or supports trunk or limbs, but provides less than half the effort. 2-Substantial/Maximal Assistance-helper does MORE THAN HALF the effort. [place] lifts or holds trunk or limbs and provides more than half the effort. 6-Cefdmkyrp-xgxxju does ALL the effort. Patient does none of the effort to complete the activity. Or, the assistance of 2 or more helpers is required for the patient to complete the activity. If activity was not attempted, code reason: 7-Patient Refused. 9-Not Applicable-not attempted and the patient did not perform the activity before the current illness, exacerbation or injury. 10-Not Attempted due to Environmental Limitations-(lack of equipment, weather restraints, etc.). 88-Not Attempted due to Medical Conditions or Safety Concerns. Bed Mobility: 6 Transfers (B,C,W/C): 6 Gait: 6 Indoor Mobility (Ambulation): Independent Prior Devices Use: Walker PT Evaluation-Current Subjective Patient lying supine in bed upon PT arrival. Patient unable to relay information about PLOF, but nods "YES", when asked if we could try to stand. Objective Patient Orientation: Person Attachments: IV ROM/Strength ROM Lower Extremities WFLS BLEs to visual observation. Strength Lower Extremities Patient unable to follow commands for MMT, however via visual observation demonstrates 3/5 or greater in all BLE planes. Sensory Vision: Wears Glasses Hearing: Unable to Assess Sensation Right Lower Extremit: Intact Sensation Left Lower Extremity: Intact Transfers Roll Left to Right (QC): 3 Sit to Lying (QC): 3 Lying to Sitting/Side of Bed(Q: 3 Sit to Stand (QC): 2 Gait Does the Patient Walk?: No and Walking Goal IS indicated Balance Sitting Static: Poor Sitting Dynamic: Poor Standing Static: Poor Standing Dynamic: Poor Assessment/Needs Patient unable to verbalize PLOF and current symptoms. Nurse reports she administered Haldol ~30 minutes prior to PT arrival. Patient requires mod to max A for all bed mobility and transfers. Patient unable to stand fully erect with FWW and max A from PT. Patient returned to bed with all needs met, nursing notified, call light in hand and bed alarm activated. Rehab Potential: Poor PT Jail Goals Hosiery Mender Goals PT Hosiery Mender Goals Time Frame: Jul 03, 2023 Roll Left & Right (QC): 4 Sit to Lying (QC): 4 Lying-Sitting on Side/Bed(QC): 4 Sit to Stand (QC): 4 Chair/Ltm-sf-Jglzy Xfer(QC): 4 Toilet Transfer (QC): 4 Does the Patient Walk: No and Walking Goal IS indicated Walk 10 feet (QC): 3 Walk 50ft with 2 Turns (QC): 3 Walk 150 ft (QC): 3 PT Plan Problem List Problem List: Activity Tolerance, Functional Strength, Safety, Balance, Gait, Transfer, Bed Mobility, ROM Treatment/Plan Treatment Plan: Continue Plan of Care Treatment Plan: Bed Mobility, Education, Functional Activity Bishnu, Functional Strength, Group Therapy, Gait, Safety, Therapeutic Exercise, Transfers Treatment Duration: Jul 08, 2023 Frequency: 6 times per week Estimated Hrs Per Day: .25 hour per day Safety Risks/Education Patient Education: Transfer Techniques Teaching Recipient: Patient Teaching Methods: Demonstration, Discussion Response to Teaching: Reinforcement Needed Time Time In: 1349 Time Out: 1405 DATE: Jun 01, 2023 Total Billed Treatment Time: 16 Total Billed Treatment Visit, ZEINA LUGO PT Jun 01, 2023 15:57
[2023-06-01 16:15] VITALS: BP 189/92
[2023-06-01] MEDS: QUEtiapine 25 MG (SEROquel) TAB IMMEDIATE RELEASE PO SCH (17:28)
[2023-06-01] MEDS: LORATADINE (CLARITIN) 10 MG TAB PO SCH (19:53)
[2023-06-01] MEDS: CITALOPRAM 20 MG TABLET PO SCH (19:54)
[2023-06-01] MEDS ORDERED: LOSARTAN 100 MG (COZAAR) TABLET ONE (19:57)
[2023-06-01] MEDS: LOSARTAN 100 MG (COZAAR) TABLET PO SCH (19:57)
[2023-06-01 20:04] VITALS: BP 180/93
[2023-06-01] MEDS ORDERED: NON-FORMULARY MEDICATION 1 EA EA (Cetirizine HCl 10 MG) PO SCH (21:00)
[2023-06-01 23:36] VITALS: BP 178/91
[2023-06-02 03:50] VITALS: BP 170/95
[2023-06-02] MEDS: NS IV 1000 ML 1,000 ML IV SCH ×3 (04:22→22:06)
[2023-06-02] MEDS: HALOPERIDOL 5 MG/ML (HALDOL) VIAL IV PRN (04:26)
[2023-06-02] MEDS: CATHETER FLUSH 10 ML SYR IV SCH ×3 (04:26→19:48)
[2023-06-02] MEDS: inSUlin ASPART (NovoLOG) 1 UNIT/0.01 ML (CHARGE PER UNIT) SC SCH ×4 (04:31→20:39)
[2023-06-02 05:43] LABS: HEMATOCRIT 45 % (40-54); HEMOGLOBIN 15.6 g/dL (13.3-17.7); MEAN CORPUSCULAR HEMOGLOBIN 30 pg (25-34); MEAN CORPUSCULAR HGB CONC 35 g/dL (32-36); MEAN CORPUSCULAR VOLUME 85 fL (80-99); MEAN PLATELET VOLUME 9.1 fL (9.0-12.2); PLATELET COUNT 270 10^3/uL (130-400); WHITE BLOOD COUNT 14.8 10^3/uL (4.3-11.0)
[2023-06-02 05:59] LABS: POTASSIUM 4.1 MMOL/L (3.6-5.0)
[2023-06-02 06:00] LABS: CALCIUM 8.9 MG/DL (8.5-10.1)
[2023-06-02 06:04] LABS: CREATININE SERUM 2.09 MG/DL (0.60-1.30)
[2023-06-02 07:49] VITALS: BP 153/90
[2023-06-02] MEDS: dilTIAZem ER 300 MG CAPSULE PO SCH (08:33)
[2023-06-02] MEDS: TAMSULOSIN 0.4 MG (FLOMAX) CAP PO SCH (08:34)
[2023-06-02] MEDS: FINASTERIDE (PROSCAR) 5 MG TAB PO SCH (08:34)
[2023-06-02] MEDS: QUEtiapine 25 MG (SEROquel) TAB IMMEDIATE RELEASE PO SCH ×2 (08:34→16:30)
[2023-06-02] MEDS: LOSARTAN 100 MG (COZAAR) TABLET PO SCH (08:35)
[2023-06-02] MEDS ORDERED: CLOPIDOGREL 75 MG TABLET PO SCH (09:00)
[2023-06-02] MEDS ORDERED: NON-FORMULARY MEDICATION 1 EA EA (Empagliflozin (Jardiance) 25 MG) PO SCH (09:00)
[2023-06-02] MEDS ORDERED: EMPAGLIFLOZIN 10 MG TABLET (JARDIANCE) PO SCH (09:00)
[2023-06-02 11:31] VITALS: BP 165/93
--- NOTE | 2023-06-02 11:54 | Physical Therapy Daily Note ---
PT Daily Note-Current Subjective Patient lying supine in bed upon PT arrival, agreeable to treatment but has sitter. Much more confused this date. Pain Section J - Health Conditions 1. Rarely or not at all 2. Occasionally 3. Frequently 4. Almost constantly 8. Unable to answer Pain Effect on Sleep: 1 Pain Interference with Therapy: 1 Pain Interference w/Day-to-Day: 1 Mental Status Patient Orientation: Confused Attachments: IV Transfers SCALE: Activities may be completed with or without assistive devices. 0-Jsxpbmzwuz-doptind completes the activity by him/herself with no assistance from a helper. 5-Set-up or Clean-up Assistance-helper sets up or cleans up; patient completes activity. [place] assists only prior to or following the activity. 4-Supervision or Touching Assistance-helper provides verbal cues and/or touching/steadying and/or contact guard assistance as patient completes activity. Assistance may be provided throughout the activity or intermittently. 3-Partial/Moderate Assistance-helper does LESS THAN HALF the effort. [place] lifts, holds or supports trunk or limbs, but provides less than half the effort. 2-Substantial/Maximal Assistance-helper does MORE THAN HALF the effort. [place] lifts or holds trunk or limbs and provides more than half the effort. 6-Njdzxhvpo-meyhlj does ALL the effort. Patient does none of the effort to complete the activity. Or, the assistance of 2 or more helpers is required for the patient to complete the activity. If activity was not attempted, code reason: 7-Patient Refused. 9-Not Applicable-not attempted and the patient did not perform the activity before the current illness, exacerbation or injury. 10-Not Attempted due to Environmental Limitations-(lack of equipment, weather restraints, etc.). 88-Not Attempted due to Medical Conditions or Safety Concerns. Roll Left & Right (QC): 2 Sit to Lying (QC): 2 Lying to Sitting/Side of Bed(Q: 2 Sit to Stand (QC): 2 Chair/Yxs-tj-Bjksa Xfer(QC): 2 Weight Bearing Right Lower Extremity: Right Full Weight Bearing Left Lower Extremity: Left Full Weight Bearing Gait Training Does the Patient Walk?: Yes Distance: 3 feet Walk 10 feet (QC): 2 Assessment Current Status: Poor Progress Patient much more confused this treatment. Patient performs all bed mobility and transfers with max A. Patient in chair post treatment with all needs met, nursing notified, call light in hand, sitter outside the room, chair alarm activated. PT Card Checker Goals Card Checker Goals PT Card Checker Goals Time Frame: Jul 03, 2023 Roll Left & Right (QC): 4 Sit to Lying (QC): 4 Lying-Sitting on Side/Bed(QC): 4 Sit to Stand (QC): 4 Chair/Nny-ju-Fxomh Xfer(QC): 4 Toilet Transfer (QC): 4 Does the Patient Walk: No and Walking Goal IS indicated Walk 10 feet (QC): 3 Walk 50ft with 2 Turns (QC): 3 Walk 150 ft (QC): 3 PT Plan Treatment/Plan Treatment Plan: Continue Plan of Care Treatment Plan: Bed Mobility, Education, Functional Activity Bishnu, Functional Strength, Group Therapy, Gait, Safety, Therapeutic Exercise, Transfers Treatment Duration: Jul 08, 2023 Frequency: 6 times per week Estimated Hrs Per Day: .25 hour per day Safety Risks/Education Patient Education: Transfer Techniques Teaching Recipient: Patient Teaching Methods: Demonstration, Discussion Response to Teaching: Reinforcement Needed Time Time In: 1010 Time Out: 1020 DATE: Jun 02, 2023 Total Billed Treatment Time: 10 Total Billed Treatment Visit, ZEINA KENNEDY PT Jun 02, 2023 11:54
--- NOTE | 2023-06-02 13:11 | Progress Note - Hospitalist ---
Subjective HPI/CC On Admission Date Seen by Provider: Jun 02, 2023 Patient is 73-year-old male with past medical history of hypertension, bsa-xjrowrn-zkjgjipzu diabetes, dementia who presented to the emergency department due to debility and confusion. When I entered the room he was confused and stated he was "making deals." His son and are at bedside to provide all the history. They state that he has had dementia but over the past 4 to 6 weeks he has had a rapid decline in his mentation. He follows with the memory care clinic and per their report he has had CTs, MRIs, even a PET scan to work-up his dementia. They report no issues have been found other than his baseline dementia. He has been falling at home and brought him in for evaluation thinking he may have a urinary tract infection. He is urine was clean but he was somewhat dehydrated so was admitted for IV fluids. This morning they report he is still as confused as he was when he came in. They are interested in pursuing longterm placement. Subjective/Events-last exam Pt laying in bed. No complaints. Pleasantly confused. NO family at bedside. Objective Exam Vital Signs Vital Signs Date Time Temp Pulse Resp B/P (MAP) Pulse Ox O2 Delivery O2 Flow Rate FiO2 06/02/23 11:31 36.9 84 18 165/93 (117) 94 Room Air Capillary Refill : General Appearance: No Apparent Distress, WD/WN Respiratory: Lungs Clear Cardiovascular: Regular Rate, Rhythm, No Murmur Gastrointestinal: Normal Bowel Sounds, Soft Neurologic/Psychiatric: Alert, Other (pleasantly confused) Results/Procedures Lab Laboratory Tests 06/02/23 05:35 Patient resulted labs reviewed. Imaging: Reviewed Imaging Report Assessment/Plan Assessment and Plan Assess & Plan/Chief Complaint CASIE Dementia Dehydration Debility Creatinine up today- hold HCTZ and Losartan Check post void residual PT/OT Continue IVF Normal TSH/Ammonia Reviewed imaging- no acute findings Called to discuss previous work up- awaiting call back Social Work consulted HTN HLD NIDDMII Continue home meds as appropriate SSI DVT ppx: Lovenox Diagnosis/Problems Diagnosis/Problems (1) AMS (altered mental status) Status: Acute (2) Hyperglycemia Status: Acute (3) Dehydration Status: Acute MARTA WARD MD Jun 02, 2023 13:11
[2023-06-02] MEDS ORDERED: LIDOCAINE UROJET 2% GEL 10 ML PKG TOP ONE (13:45)
[2023-06-02] MEDS: ENOXAPARIN 40 MG/0.4 ML (LOVENOX) SYR SQ SCH (13:54)
[2023-06-02 15:09] VITALS: BP 157/74
[2023-06-02 15:44] LABS: HEMOGLOBIN 15.3 g/dL (13.3-17.7)
[2023-06-02] MEDS: HYDROcodone/ACETAMINOPHEN 5 MG/325 MG TABLET PO PRN ×2 (17:53→22:06)
[2023-06-02 19:11] VITALS: BP 106/66
[2023-06-02] MEDS: CITALOPRAM 20 MG TABLET PO SCH (19:37)
[2023-06-02] MEDS: LORATADINE (CLARITIN) 10 MG TAB PO SCH (19:37)
[2023-06-02 23:10] VITALS: BP 156/82
[2023-06-03 03:18] VITALS: BP 126/70
[2023-06-03] MEDS: inSUlin ASPART (NovoLOG) 1 UNIT/0.01 ML (CHARGE PER UNIT) SC SCH ×4 (05:26→20:58)
[2023-06-03] MEDS: CATHETER FLUSH 10 ML SYR IV SCH ×3 (05:26→20:59)
[2023-06-03 05:47] LABS: HEMATOCRIT 41 % (40-54); HEMOGLOBIN 14.1 g/dL (13.3-17.7); MEAN CORPUSCULAR HEMOGLOBIN 30 pg (25-34); MEAN CORPUSCULAR HGB CONC 34 g/dL (32-36); MEAN CORPUSCULAR VOLUME 87 fL (80-99); MEAN PLATELET VOLUME 9.2 fL (9.0-12.2); PLATELET COUNT 232 10^3/uL (130-400); WHITE BLOOD COUNT 12.1 10^3/uL (4.3-11.0)
[2023-06-03 06:00] LABS: POTASSIUM 3.4 MMOL/L (3.6-5.0)
[2023-06-03 06:06] LABS: CREATININE SERUM 1.37 MG/DL (0.60-1.30)
[2023-06-03 07:54] VITALS: BP 152/83
[2023-06-03] MEDS: TAMSULOSIN 0.4 MG (FLOMAX) CAP PO SCH (09:22)
[2023-06-03] MEDS: FINASTERIDE (PROSCAR) 5 MG TAB PO SCH (09:22)
[2023-06-03] MEDS: dilTIAZem ER 300 MG CAPSULE PO SCH (09:22)
[2023-06-03] MEDS: QUEtiapine 25 MG (SEROquel) TAB IMMEDIATE RELEASE PO SCH ×2 (09:22→17:59)
[2023-06-03] MEDS: NS IV 1000 ML 1,000 ML IV SCH ×2 (10:25→20:59)
--- NOTE | 2023-06-03 10:55 | Physical Therapy Daily Note ---
PT Daily Note-Current Pain Section J - Health Conditions 1. Rarely or not at all 2. Occasionally 3. Frequently 4. Almost constantly 8. Unable to answer Pain Effect on Sleep: 1 Pain Interference with Therapy: 1 Pain Interference w/Day-to-Day: 1 Mental Status Patient Orientation: Non-Verbal/Aphasic Attachments: Chen Catheter, IV Transfers SCALE: Activities may be completed with or without assistive devices. 1-Hppxugdmqh-rqhspre completes the activity by him/herself with no assistance from a helper. 5-Set-up or Clean-up Assistance-helper sets up or cleans up; patient completes activity. [place] assists only prior to or following the activity. 4-Supervision or Touching Assistance-helper provides verbal cues and/or touching/steadying and/or contact guard assistance as patient completes activity. Assistance may be provided throughout the activity or intermittently. 3-Partial/Moderate Assistance-helper does LESS THAN HALF the effort. [place] li fts, holds or supports trunk or limbs, but provides less than half the effort. 2-Substantial/Maximal Assistance-helper does MORE THAN HALF the effort. [place] lifts or holds trunk or limbs and provides more than half the effort. 7-Ctzwpqmhe-ecodrj does ALL the effort. Patient does none of the effort to complete the activity. Or, the assistance of 2 or more helpers is required for the patient to complete the activity. If activity was not attempted, code reason: 7-Patient Refused. 9-Not Applicable-not attempted and the patient did not perform the activity before the current illness, exacerbation or injury. 10-Not Attempted due to Environmental Limitations-(lack of equipment, weather restraints, etc.). 88-Not Attempted due to Medical Conditions or Safety Concerns. Roll Left & Right (QC): 1 Weight Bearing Right Lower Extremity: Right Full Weight Bearing Left Lower Extremity: Left Full Weight Bearing Assessment Attempted to have patient sit to EOB, however, patient unable to follow simple direction or complete task. RN present. Patient repositioned up in bed dependent assist of 2 with bed alarm reactivated. PT Commercial Litigation Attorney Goals Fpc Goals PT Commercial Litigation Attorney Goals Time Frame: Jul 03, 2023 Roll Left & Right (QC): 4 Sit to Lying (QC): 4 Lying-Sitting on Side/Bed(QC): 4 Sit to Stand (QC): 4 Chair/Thm-wj-Dsyru Xfer(QC): 4 Toilet Transfer (QC): 4 Does the Patient Walk: No and Walking Goal IS indicated Walk 10 feet (QC): 3 Walk 50ft with 2 Turns (QC): 3 Walk 150 ft (QC): 3 PT Plan Treatment/Plan Treatment Plan: Modify Plan, see comments Treatment Plan: Bed Mobility, Education, Functional Activity Bishnu, Functional Strength, Group Therapy, Gait, Safety, Therapeutic Exercise, Transfers Treatment Duration: Jul 08, 2023 Frequency: 5 times per week Estimated Hrs Per Day: .25 hour per day Time Time In: 915 Time Out: 925 DATE: Jun 03, 2023 Total Billed Treatment Time: 10 Total Billed Treatment 1 visit FA 10 min WALLY THURSTON PT Jun 03, 2023 10:55
--- NOTE | 2023-06-03 11:41 | Discharge Inst-Skilled Nursing ---
Discharge Inst-Skilled NF Chief Complaint Patient is 73-year-old male with past medical history of hypertension, xaz-botfaal-deewrvdnp diabetes, dementia who presented to the emergency department due to debility and confusion. When I entered the room he was confused and stated he was "making deals." His son and are at bedside to provide all the history. They state that he has had dementia but over the past 4 to 6 weeks he has had a rapid decline in his mentation. He follows with the memory care clinic and per their report he has had CTs, MRIs, even a PET scan to work-up his dementia. They report no issues have been found other than his baseline dementia. He has been falling at home and brought him in for evaluation thinking he may have a urinary tract infection. He is urine was clean but he was somewhat dehydrated so was admitted for IV fluids. This morning they report he is still as confused as he was when he came in. They are interested in pursuing [facility] placement. Consult/Follow Up/Orders Follow Up Appt.: With Memory Care as scheduled and with chief medical physicist or PCP in 1 week. Skilled NF Admit to: [facility] Certification (SNF) I certify that SNF services are required to be given on an inpatient basis because of the above named patient's need for half-way care on a continuing basis for the conditions(s) for which he/she was receiving inpatient hospital services prior to his/her transfer to the SNF. [facility] Facility Order: Nursing Services, [place] Worker-Evaluate & Treat, Physical Therapy-Evaluate & Treat, Speech Language-Evaluate & Treat Oxygen Delivery Method: Room Air Discharge Diet: Cardiac Diet Daily Activity as Tolerated: Yes Resuscitation Status: Do Not Resuscitate New & Resume Previous Orders Marta Bloom Jun 03, 2023 11:40 MARTA BLOOM MD Jun 03, 2023 11:41
--- NOTE | 2023-06-03 11:46 | Progress Note - Hospitalist ---
Subjective HPI/CC On Admission Date Seen by Provider: Jun 03, 2023 Patient is 73-year-old male with past medical history of hypertension, txi-trpjdyf-akugmeegt diabetes, dementia who presented to the emergency department due to debility and confusion. When I entered the room he was confused and stated he was "making deals." His son and are at bedside to provide all the history. They state that he has had dementia but over the past 4 to 6 weeks he has had a rapid decline in his mentation. He follows with the memory care clinic and per their report he has had CTs, MRIs, even a PET scan to work-up his dementia. They report no issues have been found other than his baseline dementia. He has been falling at home and brought him in for evaluation thinking he may have a urinary tract infection. He is urine was clean but he was somewhat dehydrated so was admitted for IV fluids. This morning they report he is still as confused as he was when he came in. They are interested in pursuing jail placement. Subjective/Events-last exam Pt reports laying in bed. No complaints. at bedside. Urine clear now. Objective Exam Vital Signs Vital Signs Date Time Temp Pulse Resp B/P (MAP) Pulse Ox O2 Delivery O2 Flow Rate FiO2 06/03/23 12:00 36.8 67 18 118/66 (83) 97 Room Air Capillary Refill : General Appearance: No Apparent Distress, WD/WN Respiratory: Lungs Clear Cardiovascular: Regular Rate, Rhythm, No Murmur Gastrointestinal: Normal Bowel Sounds, Soft Neurologic/Psychiatric: Alert, Disoriented Results/Procedures Lab Laboratory Tests 06/02/23 15:30 06/03/23 05:15 Patient resulted labs reviewed. Imaging: Reviewed Imaging Report Assessment/Plan Assessment and Plan Assess & Plan/Chief Complaint CASIE- improving Hematuria Dementia Dehydration Debility Creatinine improved, 1.37 today Urine clear- DC CBI Continue to hold plavix/Lovenox PT/OT Continue IVF Normal TSH/Ammonia Reviewed imaging- no acute findings Spoke with [facility]- updated them on admission. They had no further recommendations Social Work consulted HTN HLD NIDDMII Continue home meds as appropriate SSI DVT ppx: Lovenox Diagnosis/Problems Diagnosis/Problems (1) AMS (altered mental status) Status: Acute (2) Hyperglycemia Status: Acute (3) Dehydration Status: Acute MARTA WARD MD Jun 03, 2023 11:46
[2023-06-03 12:00] VITALS: BP 118/66
[2023-06-03 15:42] VITALS: BP 146/67
[2023-06-03 19:59] VITALS: BP 143/68
[2023-06-03] MEDS: CITALOPRAM 20 MG TABLET PO SCH (20:58)
[2023-06-03] MEDS: LORATADINE (CLARITIN) 10 MG TAB PO SCH (20:58)
[2023-06-03 23:20] VITALS: BP 148/78
[2023-06-04 03:50] VITALS: BP 104/64
[2023-06-04] MEDS: CATHETER FLUSH 10 ML SYR IV SCH ×3 (05:15→21:14)
[2023-06-04] MEDS: inSUlin ASPART (NovoLOG) 1 UNIT/0.01 ML (CHARGE PER UNIT) SC SCH ×4 (05:16→21:14)
[2023-06-04 07:58] LABS: HEMATOCRIT 42 % (40-54); HEMOGLOBIN 14.1 g/dL (13.3-17.7); MEAN CORPUSCULAR HEMOGLOBIN 30 pg (25-34); MEAN CORPUSCULAR HGB CONC 34 g/dL (32-36); MEAN CORPUSCULAR VOLUME 87 fL (80-99); MEAN PLATELET VOLUME 8.7 fL (9.0-12.2); PLATELET COUNT 206 10^3/uL (130-400); WHITE BLOOD COUNT 9.5 10^3/uL (4.3-11.0)
[2023-06-04 08:09] LABS: POTASSIUM 3.3 MMOL/L (3.6-5.0)
[2023-06-04 08:10] LABS: CALCIUM 8.8 MG/DL (8.5-10.1)
[2023-06-04 08:14] LABS: CREATININE SERUM 0.75 MG/DL (0.60-1.30)
[2023-06-04 08:37] VITALS: BP 124/87
--- NOTE | 2023-06-04 08:51 | Discharge Summary ---
Diagnosis/Chief Complaint Date of Admission May 31, 2023 at 22:40 Date of Discharge Discharge Date: Jun 04, 2023 Admission Diagnosis Dementia Primary Care No,Local Physician Discharge Diagnosis (1) AMS (altered mental status) Status: Acute (2) Hyperglycemia Status: Acute (3) Dehydration Status: Acute Discharge Summary Discharge Physical Exam Allergies: Coded Allergies: Penicillins (Unverified Allergy, Unknown, 05/31/23) Vitals & I&Os Vital Signs Date Time Temp Pulse Resp B/P (MAP) Pulse Ox O2 Delivery O2 Flow Rate FiO2 06/04/23 11:49 36.8 82 18 171/86 (114) 96 Room Air Hospital Course Labs (last 24 hrs) Laboratory Tests 06/03/23 15:55: Glucometer 165H 06/03/23 20:24: Glucometer 201H 06/04/23 05:12: Glucometer 127H 06/04/23 07:50: White Blood Count 9.5, Red Blood Count 4.75, Hemoglobin 14.1, Hematocrit 42, Mean Corpuscular Volume 87, Mean Corpuscular Hemoglobin 30, Mean Corpuscular Hemoglobin Concent 34, Red Cell Distribution Width 13.2, Platelet Count 206, Mean Platelet Volume 8.7L, Sodium Level 140, Potassium Level 3.3L, Chloride Level 107, Carbon Dioxide Level 24, Anion Gap 9, Blood Urea Nitrogen 17, Creati nine 0.75, Estimat Glomerular Filtration Rate 95, BUN/Creatinine Ratio 23, Glucose Level 119H, Calcium Level 8.8 06/04/23 11:00: Glucometer 181H Patient resulted labs reviewed. Pending Labs Laboratory Tests 06/04/23 07:50: White Blood Count 9.5, Red Blood Count 4.75, Hemoglobin 14.1, Hematocrit 42, Mean Corpuscular Volume 87, Mean Corpuscular Hemoglobin 30, Mean Corpuscular Hemoglobin Concent 34, Red Cell Distribution Width 13.2, Platelet Count 206, Mean Platelet Volume 8.7, Sodium Level 140, Potassium Level 3.3, Chloride Level 107, Carbon Dioxide Level 24, Anion Gap 9, Blood Urea Nitrogen 17, Creatinine 0.75, Estimat Glomerular Filtration Rate 95, BUN/Creatinine Ratio 23, Glucose Level 119, Calcium Level 8.8 06/04/23 11:00: Glucometer 181 Imaging: Reviewed Imaging Report Discharge Home Medications: Active Scripts Active Diltiazem 24Hr Cd (Diltiazem HCl) 300 Mg Cap.er.24h 300 Mg PO DAILY Quetiapine Fumarate 25 Mg Tablet 50 Mg PO 1800 TAKES 2 (25MG) TABS Quetiapine Fumarate 25 Mg Tablet 25 Mg PO DAILY Cetirizine HCl 10 Mg Tablet 10 Mg PO HS Losartan-Hctz 100-25 mg Tab (Losartan/Hydrochlorothiazide) 100 Mg-25 Mg Tablet 1 Ea PO DAILY Atorvastatin Calcium 10 Mg Tablet 10 Mg PO DAILY Jardiance (Empagliflozin) 25 Mg Tablet 25 Mg PO DAILY Metformin HCl 1,000 Mg Tablet 1,000 Mg PO BID Flomax (Tamsulosin HCl) 0.4 Mg Cap 0.4 Mg PO DAILY Finasteride 5 Mg Tablet 5 Mg PO DAILY Citalopram HBr (Citalopram Hydrobromide) 20 Mg Tablet 20 Mg PO HS Reported Clopidogrel (Clopidogrel Bisulfate) 75 Mg Tablet 75 Mg PO DAILY Instructions to patient/family Please see electronic discharge instructions given to patient. MARTA WARD MD Jun 04, 2023 08:51
[2023-06-04] MEDS: TAMSULOSIN 0.4 MG (FLOMAX) CAP PO SCH (09:30)
[2023-06-04] MEDS: FINASTERIDE (PROSCAR) 5 MG TAB PO SCH (09:33)
[2023-06-04] MEDS: QUEtiapine 25 MG (SEROquel) TAB IMMEDIATE RELEASE PO SCH ×2 (09:33→18:01)
[2023-06-04] MEDS: dilTIAZem ER 300 MG CAPSULE PO SCH ×2 (09:36→09:39)
[2023-06-04] MEDS: NS IV 1000 ML 1,000 ML IV SCH (09:38)
[2023-06-04 11:49] VITALS: BP 171/86
[2023-06-04] MEDS ORDERED: TMSL.4C PO (12:33)
[2023-06-04] MEDS ORDERED: EMPA25TA PO (12:33)
[2023-06-04] MEDS ORDERED: LOSA1TAB23 PO (12:33)
[2023-06-04] MEDS ORDERED: FINA5TAB6 PO (12:33)
[2023-06-04] MEDS ORDERED: METF-399 PO (12:33)
[2023-06-04] MEDS ORDERED: CETI10TA17 PO (12:33)
[2023-06-04] MEDS ORDERED: DILT300C51 PO (12:33)
[2023-06-04] MEDS ORDERED: QUET25TA35 PO ×2 (12:33)
[2023-06-04] MEDS ORDERED: CITA20TA9 PO (12:33)
[2023-06-04] MEDS ORDERED: ATOR10TA66 PO (12:33)
[2023-06-04] MEDS: HYDROcodone/ACETAMINOPHEN 5 MG/325 MG TABLET PO PRN ×2 (14:12→21:14)
--- NOTE | 2023-06-04 14:37 | Progress Note - Hospitalist ---
Subjective HPI/CC On Admission Date Seen by Provider: Jun 04, 2023 Patient is 73-year-old male with past medical history of hypertension, krs-xdtnpkz-puuucylot diabetes, dementia who presented to the emergency department due to debility and confusion. When I entered the room he was confused and stated he was "making deals." His son and are at bedside to provide all the history. They state that he has had dementia but over the past 4 to 6 weeks he has had a rapid decline in his mentation. He follows with the memory care clinic and per their report he has had CTs, MRIs, even a PET scan to work-up his dementia. They report no issues have been found other than his baseline dementia. He has been falling at home and brought him in for evaluation thinking he may have a urinary tract infection. He is urine was clean but he was somewhat dehydrated so was admitted for IV fluids. This morning they report he is still as confused as he was when he came in. They are interested in pursuing half-way placement. Subjective/Events-last exam Patient had catheter removed as urine had cleared this morning he had no complaints. Plan was to discharge but he was unable to urinate. Bladder scan revealed 1400 and his bladder. Straight cath attempted and he had recurrence of hematuria. This is likely causing his urinary retention. CBI ordered. Discussed with patient's and son plan to keep through the weekend and likely discharge with a catheter in place unless he continues to have worsening hematuria then he may need to transfer for urology evaluation. Objective Exam Vital Signs Vital Signs Date Time Temp Pulse Resp B/P (MAP) Pulse Ox O2 Delivery O2 Flow Rate FiO2 06/04/23 11:49 36.8 82 18 171/86 (114) 96 Room Air Capillary Refill : General Appearance: No Apparent Distress, Chronically ill Respiratory: Lungs Clear, No Respiratory Distress Cardiovascular: Regular Rate, Rhythm, No Murmur Gastrointestinal: Normal Bowel Sounds, Soft Neurologic/Psychiatric: Alert, Disoriented Results/Procedures Lab Laboratory Tests 06/04/23 07:50 Patient resulted labs reviewed. Imaging: Reviewed Imaging Report Assessment/Plan Assessment and Plan Assess & Plan/Chief Complaint CASIE- resolved Hematuria- recurred Dementia Dehydration Debility Creatinine back to baseline Hematuria recurred- CBI ordered to restart Continue to hold plavix/Lovenox PT/OT Normal TSH/Ammonia Reviewed imaging- no acute findings Spoke with [facility]- updated them on admission. They had no further recommendations Social Work consulted- planned to DC to [facility] today but will keep due to hematuria HTN HLD NIDDMII Continue home meds as appropriate SSI DVT ppx: Lovenox Diagnosis/Problems Diagnosis/Problems (1) AMS (altered mental status) Status: Acute (2) Hyperglycemia Status: Acute (3) Dehydration Status: Acute MARTA WARD MD Jun 04, 2023 14:37
[2023-06-04] MEDS ORDERED: LORazepam INJ 2 MG/ML (ATIVAN) VIAL IVP PRN (14:45)
[2023-06-04 15:21] VITALS: BP 159/77
[2023-06-04 19:18] VITALS: BP 176/82
[2023-06-04] MEDS: LORATADINE (CLARITIN) 10 MG TAB PO SCH (21:13)
[2023-06-04] MEDS: CITALOPRAM 20 MG TABLET PO SCH (21:13)
[2023-06-04] MEDS: LORazepam 1 MG (ATIVAN) TAB PO PRN (21:14)
[2023-06-04 23:35] VITALS: BP 160/78
[2023-06-05 03:11] VITALS: BP 166/86
[2023-06-05] MEDS: CATHETER FLUSH 10 ML SYR IV SCH ×3 (05:37→21:36)
[2023-06-05] MEDS: inSUlin ASPART (NovoLOG) 1 UNIT/0.01 ML (CHARGE PER UNIT) SC SCH ×4 (05:37→20:47)
[2023-06-05 05:52] LABS: HEMATOCRIT 42 % (40-54); HEMOGLOBIN 14.4 g/dL (13.3-17.7); MEAN CORPUSCULAR HEMOGLOBIN 30 pg (25-34); MEAN CORPUSCULAR HGB CONC 34 g/dL (32-36); MEAN CORPUSCULAR VOLUME 88 fL (80-99); MEAN PLATELET VOLUME 9.3 fL (9.0-12.2); PLATELET COUNT 215 10^3/uL (130-400); WHITE BLOOD COUNT 11.1 10^3/uL (4.3-11.0)
[2023-06-05 06:07] LABS: POTASSIUM 3.3 MMOL/L (3.6-5.0)
[2023-06-05 06:08] LABS: CALCIUM 8.7 MG/DL (8.5-10.1)
[2023-06-05 06:12] LABS: CREATININE SERUM 0.67 MG/DL (0.60-1.30)
--- NOTE | 2023-06-05 06:51 | Progress Note - Hospitalist ---
Subjective HPI/CC On Admission Date Seen by Provider: Jun 05, 2023 Patient is 73-year-old male with past medical history of hypertension, jcd-kijkndm-hqitszbwv diabetes, dementia who presented to the emergency department due to debility and confusion. When I entered the room he was confused and stated he was "making deals." His son and are at bedside to provide all the history. They state that he has had dementia but over the past 4 to 6 weeks he has had a rapid decline in his mentation. He follows with the memory care clinic and per their report he has had CTs, MRIs, even a PET scan to work-up his dementia. They report no issues have been found other than his baseline dementia. He has been falling at home and brought him in for evaluation thinking he may have a urinary tract infection. He is urine was clean but he was somewhat dehydrated so was admitted for IV fluids. This morning they report he is still as confused as he was when he came in. They are interested in pursuing penitentiary placement. Subjective/Events-last exam Patient reports doing well. No complaints. No family at bedside. Objective Exam Vital Signs Vital Signs Date Time Temp Pulse Resp B/P (MAP) Pulse Ox O2 Delivery O2 Flow Rate FiO2 06/05/23 03:11 36.6 75 14 166/86 (112) 94 Room Air Capillary Refill : General Appearance: No Apparent Distress, WD/WN Respiratory: Lungs Clear, No Respiratory Distress Cardiovascular: Regular Rate, Rhythm, No Murmur Genital/Rectal: Other (urine in bag much clearer) Neurologic/Psychiatric: Alert, Disoriented (pleasantly confused) Results/Procedures Lab Laboratory Tests 06/04/23 07:50 06/05/23 05:39 Patient resulted labs reviewed. Imaging: Reviewed Imaging Report Assessment/Plan Assessment and Plan Assess & Plan/Chief Complaint CASIE- resolved Hematuria- improving Dementia Dehydration Debility Creatinine back to baseline Hematuria improving with CBI Continue to hold plavix/Lovenox PT/OT Reviewed imaging- no acute findings Spoke with [facility]- updated them on admission. They had no further recommendations Social Work consulted- planning to DC to [facility] HTN HLD NIDDMII Continue home meds as appropriate- resume Losartan now that CASIE resolved SSI DVT ppx: Lovenox Diagnosis/Problems Diagnosis/Problems (1) AMS (altered mental status) Status: Acute (2) Hyperglycemia Status: Acute (3) Dehydration Status: Acute MARTA WARD MD Jun 05, 2023 06:51
[2023-06-05] MEDS ORDERED: KCL 20 MEQ TAB (K-DUR) PO ONE (07:00)
[2023-06-05 07:41] VITALS: BP 175/88
[2023-06-05] MEDS: dilTIAZem ER 300 MG CAPSULE PO SCH (08:15)
[2023-06-05] MEDS: TAMSULOSIN 0.4 MG (FLOMAX) CAP PO SCH (08:15)
[2023-06-05] MEDS: LOSARTAN 100 MG (COZAAR) TABLET PO SCH (08:16)
[2023-06-05] MEDS: LORazepam 1 MG (ATIVAN) TAB PO PRN ×2 (08:17→21:36)
[2023-06-05] MEDS: FINASTERIDE (PROSCAR) 5 MG TAB PO SCH (08:18)
[2023-06-05] MEDS: HYDROcodone/ACETAMINOPHEN 5 MG/325 MG TABLET PO PRN (08:18)
[2023-06-05] MEDS: QUEtiapine 25 MG (SEROquel) TAB IMMEDIATE RELEASE PO SCH ×2 (08:18→18:07)
[2023-06-05 11:36] VITALS: BP 132/75
[2023-06-05 15:38] VITALS: BP 137/83
[2023-06-05 19:38] VITALS: BP 168/87
[2023-06-05] MEDS: CITALOPRAM 20 MG TABLET PO SCH (21:35)
[2023-06-05] MEDS: LORATADINE (CLARITIN) 10 MG TAB PO SCH (21:36)
[2023-06-06] VITALS (8 sets, daily range): BP systolic 107–168; BP diastolic 60–89
[2023-06-06] MEDS: inSUlin ASPART (NovoLOG) 1 UNIT/0.01 ML (CHARGE PER UNIT) SC SCH ×4 (06:03→20:46)
[2023-06-06] MEDS: CATHETER FLUSH 10 ML SYR IV SCH ×3 (06:03→20:46)
[2023-06-06] MEDS: FINASTERIDE (PROSCAR) 5 MG TAB PO SCH (07:53)
[2023-06-06] MEDS: QUEtiapine 25 MG (SEROquel) TAB IMMEDIATE RELEASE PO SCH ×2 (07:53→17:32)
[2023-06-06] MEDS: dilTIAZem ER 300 MG CAPSULE PO SCH (07:54)
[2023-06-06] MEDS: TAMSULOSIN 0.4 MG (FLOMAX) CAP PO SCH (07:54)
[2023-06-06] MEDS: LORazepam 1 MG (ATIVAN) TAB PO PRN (07:54)
[2023-06-06] MEDS: LOSARTAN 100 MG (COZAAR) TABLET PO SCH (07:54)
[2023-06-06] MEDS: HYDROcodone/ACETAMINOPHEN 5 MG/325 MG TABLET PO PRN (09:42)
--- NOTE | 2023-06-06 12:27 | Progress Note - Hospitalist ---
Subjective HPI/CC On Admission Date Seen by Provider: Jun 06, 2023 Patient is 73-year-old male with past medical history of hypertension, dea-yctbcxu-cuuielnka diabetes, dementia who presented to the emergency department due to debility and confusion. When I entered the room he was confused and stated he was "making deals." His son and are at bedside to provide all the history. They state that he has had dementia but over the past 4 to 6 weeks he has had a rapid decline in his mentation. He follows with the memory care clinic and per their report he has had CTs, MRIs, even a PET scan to work-up his dementia. They report no issues have been found other than his baseline dementia. He has been falling at home and brought him in for evaluation thinking he may have a urinary tract infection. He is urine was clean but he was somewhat dehydrated so was admitted for IV fluids. This morning they report he is still as confused as he was when he came in. They are interested in pursuing prison placement. Subjective/Events-last exam Pt layingin bed sleeping. No complaints. No family at bedside. Objective Exam Vital Signs Vital Signs Date Time Temp Pulse Resp B/P (MAP) Pulse Ox O2 Delivery O2 Flow Rate FiO2 06/06/23 11:11 36.6 101 20 145/67 (93) 93 Room Air Capillary Refill : General Appearance: No Apparent Distress Respiratory: Lungs Clear, No Respiratory Distress Cardiovascular: Regular Rate, Rhythm, No Murmur Gastrointestinal: Normal Bowel Sounds, Soft Genital/Rectal: Other (darker urine in catheter this morning) Neurologic/Psychiatric: Alert, Disoriented Results/Procedures Lab Patient resulted labs reviewed. Imaging: Reviewed Imaging Report Assessment/Plan Assessment and Plan Assess & Plan/Chief Complaint CASIE- resolved Hematuria- improving Dementia Dehydration Debility Creatinine back to baseline Hematuria improving with CBI- darker this morning but seems like old blood and not fresh bleeding Continue to hold plavix/Lovenox PT/OT Reviewed imaging- no acute findings Spoke with [facility] on admission- They had no further recommendations Social Work consulted- planning to DC to [facility] HTN HLD NIDDMII Continue home meds as appropriate SSI DVT ppx: Lovenox Diagnosis/Problems Diagnosis/Problems (1) AMS (altered mental status) Status: Acute (2) Hyperglycemia Status: Acute (3) Dehydration Status: Acute MARTA WARD MD Jun 06, 2023 12:27
[2023-06-06] MEDS: LORATADINE (CLARITIN) 10 MG TAB PO SCH (20:46)
[2023-06-06] MEDS: CITALOPRAM 20 MG TABLET PO SCH (20:46)
[2023-06-07 03:23] VITALS: BP 139/72
[2023-06-07 06:04] LABS: HEMATOCRIT 46 % (40-54); HEMOGLOBIN 15.3 g/dL (13.3-17.7); MEAN CORPUSCULAR HEMOGLOBIN 29 pg (25-34); MEAN CORPUSCULAR HGB CONC 34 g/dL (32-36); MEAN CORPUSCULAR VOLUME 87 fL (80-99); MEAN PLATELET VOLUME 9.3 fL (9.0-12.2); PLATELET COUNT 278 10^3/uL (130-400); WHITE BLOOD COUNT 15.7 10^3/uL (4.3-11.0)
[2023-06-07 06:17] LABS: POTASSIUM 3.4 MMOL/L (3.6-5.0)
[2023-06-07 06:18] LABS: CALCIUM 9.7 MG/DL (8.5-10.1)
[2023-06-07 06:23] LABS: CREATININE SERUM 0.85 MG/DL (0.60-1.30)
[2023-06-07] MEDS: CATHETER FLUSH 10 ML SYR IV SCH ×2 (06:28→14:32)
[2023-06-07] MEDS: inSUlin ASPART (NovoLOG) 1 UNIT/0.01 ML (CHARGE PER UNIT) SC SCH ×2 (06:28→10:53)
[2023-06-07 07:58] VITALS: BP 150/76
[2023-06-07] MEDS: FINASTERIDE (PROSCAR) 5 MG TAB PO SCH (08:17)
[2023-06-07] MEDS: dilTIAZem ER 300 MG CAPSULE PO SCH (08:17)
[2023-06-07] MEDS: LOSARTAN 100 MG (COZAAR) TABLET PO SCH (08:17)
[2023-06-07] MEDS: TAMSULOSIN 0.4 MG (FLOMAX) CAP PO SCH (08:17)
[2023-06-07] MEDS: QUEtiapine 25 MG (SEROquel) TAB IMMEDIATE RELEASE PO SCH (08:18)
--- NOTE | 2023-06-07 08:36 | Physical Therapy Progress Note ---
Therapy Progress Note No treatment per RN due to current status. Plan dismissal to [facility] this week. WALLY THURSTON PT Jun 07, 2023 08:36
--- NOTE | 2023-06-07 10:31 | Discharge Summary ---
Diagnosis/Chief Complaint Date of Admission May 31, 2023 at 22:40 Date of Discharge Discharge Date: Jun 07, 2023 Admission Diagnosis Dementia Primary Care No,Local Physician Discharge Diagnosis (1) AMS (altered mental status) Status: Acute (2) Hyperglycemia Status: Acute (3) Dehydration Status: Acute Discharge Summary Discharge Physical Exam Allergies: Coded Allergies: Penicillins (Unverified Allergy, Unknown, 05/31/23) Vitals & I&Os Vital Signs Date Time Temp Pulse Resp B/P (MAP) Pulse Ox O2 Delivery O2 Flow Rate FiO2 06/07/23 08:00 Room Air 06/07/23 07:58 36.4 81 16 150/76 (100) 95 General Appearance: No Apparent Distress, WD/WN Respiratory: Lungs Clear Cardiovascular: Regular Rate, Rhythm, No Murmur Gastrointestinal: Normal Bowel Sounds, Soft Neurologic/Psychiatric: Alert, Disoriented Hospital Course Patient was admitted to the hospital secondary to altered mental status and generalized weakness. He had been having falls at home and has a rapidly progressing dementia likely Alzheimer's and Lewy body dementia per memory care clinic. He was seen by physical therapy and Occupational Therapy and plan was initially to discharge to nursing home but he developed hematuria and urinary retention. This resolved with CBI but after catheter was removed it recurred. I continued CBI for 2 or 3 days and despite this he has continued to have significant hematuria. His hemoglobin has been stable in the 14-15's. He was transferred to [facility] in [place] for urology evaluation. Labs (last 24 hrs) Laboratory Tests 06/06/23 10:42: Glucometer 208H 06/06/23 15:43: Glucometer 213H 06/06/23 20:11: Glucometer 242H 06/07/23 05:07: Glucometer 200H 06/07/23 05:16: White Blood Count 15.7H, Red Blood Count 5.26, Hemoglobin 15.3, Hematocrit 46, Mean Corpuscular Volume 87, Mean Corpuscular Hemoglobin 29, Mean Corpuscular Hemoglobin Concent 34, Red Cell Distribution Width 13.5, Platelet Count 278, Mean Platelet Volume 9.3, Sodium Level 139, Potassium Level 3.4L, Chloride Level 103, Carbon Dioxide Level 23, Anion Gap 13, Blood Urea Nitrogen 32H, Creatinine 0.85, Estimat Glomerular Filtration Rate 91, BUN/Creatinine Ratio 38, Glucose Level 201H, Calcium Level 9.7 Patient resulted labs reviewed. Pending Labs Laboratory Tests 06/07/23 05:07: Glucometer 200 06/07/23 05:16: White Blood Count 15.7, Red Blood Count 5.26, Hemoglobin 15.3, Hematocrit 46, Mean Corpuscular Volume 87, Mean Corpuscular Hemoglobin 29, Mean Corpuscular Hemoglobin Concent 34, Red Cell Distribution Width 13.5, Platelet Count 278, Mean Platelet Volume 9.3, Sodium Level 139, Potassium Level 3.4, Chloride Level 103, Carbon Dioxide Level 23, Anion Gap 13, Blood Urea Nitrogen 32, Creatinine 0.85, Estimat Glomerular Filtration Rate 91, BUN/Creatinine Ratio 38, Glucose Level 201, Calcium Level 9.7 Imaging: Reviewed Imaging Report Discussion & Recommendations Discharge Planning: >30 minutes discharge planning Discharge Home Medications: Active Scripts Active Diltiazem 24Hr Cd (Diltiazem HCl) 300 Mg Cap.er.24h 300 Mg PO DAILY Quetiapine Fumarate 25 Mg Tablet 50 Mg PO 1800 TAKES 2 (25MG) TABS Quetiapine Fumarate 25 Mg Tablet 25 Mg PO DAILY Cetirizine HCl 10 Mg Tablet 10 Mg PO HS Losartan-Hctz 100-25 mg Tab (Losartan/Hydrochlorothiazide) 100 Mg-25 Mg Tablet 1 Ea PO DAILY Atorvastatin Calcium 10 Mg Tablet 10 Mg PO DAILY Jardiance (Empagliflozin) 25 Mg Tablet 25 Mg PO DAILY Metformin HCl 1,000 Mg Tablet 1,000 Mg PO BID Flomax (Tamsulosin HCl) 0.4 Mg Cap 0.4 Mg PO DAILY Finasteride 5 Mg Tablet 5 Mg PO DAILY Citalopram HBr (Citalopram Hydrobromide) 20 Mg Tablet 20 Mg PO HS Reported Clopidogrel (Clopidogrel Bisulfate) 75 Mg Tablet 75 Mg PO DAILY Instructions to patient/family Please see electronic discharge instructions given to patient. MARTA WARD MD Jun 07, 2023 10:31
[2023-06-07 11:53] VITALS: BP 144/65
[2023-06-07 13:43] LABS: BILIRUBIN,URINE NEGATIVE (NEGATIVE); CLARITY,URINE CLEAR; COLOR,URINE RED; GLUCOSE, URINE (UA) 3+ (NEGATIVE); KETONES,URINE 1+ (NEGATIVE); LEUKOCYTE ESTERASE ,URINE TRACE (NEGATIVE); NITRITE,URINE POSITIVE (NEGATIVE); PROTEIN,URINE 2+ (NEGATIVE)
== END 2023-06-07 15:02 | disposition short-term general hospital (02) | DRG 641 ==
LOC: EDUNIT# 20:12 → ER 20:15 → 4TH 22:40
PROVIDERS: ADMIT Internal Medicine; ATTEND Internal Medicine
DX: E86.0 Dehydration (principal); N17.9 Acute kidney failure, unspecified; G30.9 Alzheimer's disease, unspecified; G31.83 Neurocognitive disorder with Lewy bodies; F02.80 Dementia in other diseases classified elsewhere, unspecified severity, without behavioral disturbance, psychotic disturbance, mood disturbance, and anxiety; I10 Essential (primary) hypertension; E11.65 Type 2 diabetes mellitus with hyperglycemia; E11.40 Type 2 diabetes mellitus with diabetic neuropathy, unspecified; Z66 Do not resuscitate; Z79.84 Long term (current) use of oral hypoglycemic drugs; Z91.81 History of falling; R31.9 Hematuria, unspecified; R33.9 Retention of urine, unspecified; E78.5 Hyperlipidemia, unspecified; H54.7 Unspecified visual loss; Z88.0 Allergy status to penicillin; Z79.02 Long term (current) use of antithrombotics/antiplatelets; Z79.899 Other long term (current) drug therapy; Z79.52 Long term (current) use of systemic steroids
CPT/HCPCS: 36415; 51701; 70450; 71045; 72125; 72131; 80048; 80053; 81000; 82140; 82550; 82947; 83735; 84443; 85014; 85018; 85025; 85027